=== PATIENT | female | born 1965 | race Caucasian/White ===

== ENCOUNTER 2020-12-30 15:32 | Emergency (ER) | payer BC, SELFPAY ==
[2020-12-30 15:53] VITALS: BP 132/92; PULSE 80; RESP 16; TEMP 36.1; O2SAT 99
--- NOTE | 2020-12-30 16:28 | ED.FEMALEGU ---
HPI - Female Genitourinary General Chief complaint: Urogenital-Female Stated complaint: Urogenital-Female Time Seen by Provider: 12/30/20 16:14 Source: patient and RN notes reviewed Mode of arrival: ambulatory Limitations: no limitations History of Present Illness HPI Narrative: Patient presents today complaining of 2-day history of lower abdominal cramping with dysuria and hematuria that started today. States that she noted blood clots in her urine while at home today. Denies fever, nausea, vomiting, chills or sweats. She has taken no medication for symptoms prior to arrival. No recent antibiotic use. No history of frequent UTIs. MD elicited complaint: dysuria Related Data Home Medications Medication Instructions Recorded Confirmed atenolol 50 mg PO DAILY 12/30/20 12/30/20 cyclobenzaprine [Flexeril] 10 mg PO HS 12/30/20 12/30/20 dexlansoprazole [Dexilant] 30 mg PO DAILY 12/30/20 12/30/20 duloxetine [Cymbalta] 60 mg PO DAILY 12/30/20 12/30/20 famotidine [Pepcid] 20 mg PO BID 12/30/20 12/30/20 fexofenadine [Gaye] 180 mg PO DAILY 12/30/20 12/30/20 montelukast [Singulair] 10 mg PO DAILY 12/30/20 12/30/20 pregabalin [Lyrica] 150 mg PO BID 12/30/20 12/30/20 Allergies Allergy/AdvReac Type Severity Reaction Status Date / Time codeine AdvReac Unknown nausea Verified 12/15/17 18:39 tramadol AdvReac Unknown severely Verified 12/15/17 18:39 interupted sleep Review of Systems Review of Systems: Narrative: CONSTITUTIONAL: Denies body aches, fever, chills, or sweats. EYES: Denies visual changes, redness, or discharge. ENT: Denies rhinorrhea, congestion, sore throat, or otalgia. CARDIOVASCULAR: Denies chest pain, palpitations, or edema. RESPIRATORY: Denies cough or dyspnea. GASTROINTESTINAL: Denies nausea, vomiting, or diarrhea. + Lower abdominal cramping GENITOURINARY:+ Dysuria, hematuria, urgency. SKIN: Denies rash, itching, or wounds. MUSCULOSKELETAL: Denies back pain, joint pain, or myalgia. NEUROLOGIC: Denies headache, numbness, tingling, or weakness. PSYCH: Denies depression or anxiety. [facility] Past Medical History Medical History (Updated 12/30/20 @ 16:35 by Giovana Levine, SLIP TENDER, ) Connective tissue disease Fibromyalgia Tricuspid regurgitation Comments At time of signature, I have reviewed and agree with nursing past medical, surgical, social and family history unless otherwise noted. Please see nursing chart for further information. There is no relevant family history pertinent to the presenting complaint Exam Narrative: Exam Narrative: GENERAL: Well-appearing, well-nourished, and in no acute distress. HEAD: Normocephalic, atraumatic. EYES: EOMI. No redness or drainage. Conjunctivae normal. ENT: Mucous membranes pink and moist. NECK: Normal AROM. CHEST: No respiratory distress. Clear to auscultation. HEART: Regular rate and rhythm. No murmur appreciated. Normal peripheral pulses. ABDOMEN: Soft, nontender, nondistended, normal active bowel sounds. -CVAT MUSCULOSKELETAL: No bony tenderness. EXTREMITIES: Normal range of motion. No edema. SKIN: Warm, dry, no rash. Capillary refill normal. Normal skin turgor. NEURO: No focal deficits. Alert and oriented x3. Gait steady. PSYCH: Normal affect. No signs of depression or anxiety. Course Vital Signs Vital signs: Vital Signs Temperature 97 F L 12/30/20 15:53 Pulse Rate 80 12/30/20 15:53 Respiratory Rate 16 12/30/20 15:53 Blood Pressure 132/92 H 12/30/20 15:53 Pulse Oximetry 99 12/30/20 15:53 Temperature 97 F L 12/30/20 15:53 Pulse Rate 80 12/30/20 15:53 Respiratory Rate 16 12/30/20 15:53 Blood Pressure 132/92 H 12/30/20 15:53 Pulse Oximetry 99 12/30/20 15:53 Reviewed. Pt has been instructed to follow up with her PCP regarding her elevated blood pressure today. MDM - Female Genitourinary Differential Diagnosis Differential diagnosis: Likely urinary tract infection, cervicitis, vaginitis and other (Pyel
== END 2020-12-30 16:44 | disposition home or self-care (01) ==
PROVIDERS: Emergency Provider Nurse Practitioner; PCP Physician Assistant
DX: N30.01 Acute cystitis with hematuria (principal); M79.7 Fibromyalgia; I07.1 Rheumatic tricuspid insufficiency
CPT/HCPCS: 81003; 87086; 87088; 99203; G0463

== ENCOUNTER 2023-07-06 10:11 | Emergency (ER) | payer BC, SELFPAY ==
[2023-07-06 10:24] VITALS: BP 120/75; PULSE 81; RESP 18; TEMP 36.2; O2SAT 99
--- NOTE | 2023-07-06 10:28 | ED.EYEPROB ---
HPI - Eye Problem General Chief complaint: Eye Problems Stated complaint: Right Eye Problem History of Present Illness HPI Narrative: Patient presents with right eye redness and itching. Patient states she had COVID 2 weeks ago and is now worried that she has pinkeye. Related Data Home Medications Medication Instructions Recorded Confirmed atenolol 50 mg tablet 50 mg PO DAILY 12/30/20 07/06/23 cyclobenzaprine 10 mg tablet 10 mg PO HS 12/30/20 07/06/23 dexlansoprazole 30 mg 30 mg PO DAILY 12/30/20 07/06/23 capsule,biphase delayed release (Dexilant) duloxetine 60 mg capsule,delayed 60 mg PO DAILY 12/30/20 07/06/23 release (Cymbalta) famotidine 20 mg tablet (Pepcid) 20 mg PO BID 12/30/20 07/06/23 fexofenadine 180 mg tablet 180 mg PO DAILY 12/30/20 07/06/23 montelukast 10 mg tablet 10 mg PO DAILY 12/30/20 07/06/23 (Singulair) pregabalin 150 mg capsule (Lyrica) 150 mg PO BID 12/30/20 07/06/23 eluxadoline 100 mg tablet (Viberzi) 1 mg PO BID 07/06/23 07/06/23 Allergies Allergy/AdvReac Type Severity Reaction Status Date / Time codeine AdvReac Unknown nausea Verified 07/06/23 10:23 tramadol AdvReac Unknown severely Verified 07/06/23 10:23 interupted sleep Review of Systems Review of Systems: CONSTITUTIONAL: Denies fever, chills, or sweats. EYES: Denies visual changes, redness, or discharge. ENT: Denies rhinorrhea, congestion, sore throat, or otalgia. CARDIOVASCULAR: Denies chest pain, palpitations, or edema. RESPIRATORY: Denies cough or dyspnea. GASTROINTESTINAL: Denies abdominal pain, nausea, vomiting, or diarrhea. GENITOURINARY: Denies dysuria or hematuria. SKIN: Denies rash or itching. MUSCULOSKELETAL: Denies back pain, joint pain, or myalgia. NEUROLOGIC: Denies headache, numbness, or weakness. PSYCHIATRIC: Denies anxiety or depression. [facility] Past Medical History Medical History (Updated 07/06/23 @ 10:30 by BRYANT Vela) Connective tissue disease Fibromyalgia Tricuspid regurgitation Comments At time of signature, agree with nursing past medical, surgical, social and family history. There is no relevant family history pertinent to the presenting complaint Exam Narrative: GENERAL: Well-appearing, well-nourished, and in no acute distress. HEAD: Normocephalic, atraumatic. EYES: PERRLA and EOMI. ENT: Nares clear, no rhinorrhea or epistaxis. Mucous membranes moist. NECK: Supple. CHEST: Clear to auscultation. No respiratory distress. HEART: Regular rate and rhythm. No murmur heard. Normal peripheral pulses. ABDOMEN: Soft, nontender, nondistended, normal active bowel sounds. EXTREMITIES: Normal range of motion. No edema. SKIN: Warm, dry, no rash. NEURO: No focal deficits. Alert and oriented x3. Azeem Coma Scale Eye Opening: Spontaneous 4 [place] Coma Scale Motor: Obeys Commands 6 Azeem Coma Scale Verbal: Oriented 5 [place] Coma Scale Total 15 Eyes: Conjunctivae: conjunctival abnormality (conjuntivitis) right Course Course Level of Care: Express Care Visit Vital Signs Vital signs: Vital Signs Temperature 36.2 C L 07/06/23 10:24 Pulse Rate 81 07/06/23 10:24 Respiratory Rate 18 07/06/23 10:24 Blood Pressure 120/75 07/06/23 10:24 Pulse Oximetry 99 07/06/23 10:24 Oxygen Delivery Room Air 07/06/23 10:24 Temperature 36.2 C L 07/06/23 10:24 Pulse Rate 81 07/06/23 10:24 Respiratory Rate 18 07/06/23 10:24 Blood Pressure 120/75 07/06/23 10:24 Pulse Oximetry 99 07/06/23 10:24 Oxygen Delivery Room Air 07/06/23 10:24 Discharge Plan Discharge Clinical Impression: Bacterial conjunctivitis Patient Disposition: Home, Self-Care Condition: Stable Instructions: Conjunctivitis (ED) Additional Instructions: Conjunctivitis is spread by lyka-or-qyxa contact or by touching a contaminated surface. You can use artificial tears, cold and warm compresses-use, different compress for each eye, and increase hygiene such as h
[2023-07-06 10:31] VITALS: BP 120/75; PULSE 81; RESP 18; TEMP 36.2; O2SAT 99
== END 2023-07-06 10:35 | disposition home or self-care (01) ==
PROVIDERS: Emergency Provider Nurse Practitioner Family; PCP Physician Assistant
DX: H10.9 Unspecified conjunctivitis (principal)
CPT/HCPCS: 99213; G0463

== ENCOUNTER 2024-12-25 13:30 | Emergency (ER) | payer BC, SELFPAY ==
--- OUTSIDE RECORDS SUMMARY | 2024-12-25 13:41 | XMS_ITS | Encounter Summary ---
Author Organization [facility] Address [address] [place] [address] Phone Care Team Providers Care Metal Hanger Name Role Phone Cheo David DO Unavailable [phone] Susanna Hickman AIR TWISTER WINDER, REVENUE SETTLEMENTS ADMINISTRATOR Unavailable Angela Stafford AIR TWISTER WINDER, REVENUE SETTLEMENTS ADMINISTRATOR Unavailable Gracy Griffith MD Unavailable Chary Ferris PAC Primary Care Provider + Cameron Camacho MD Unavailable Sharon Tai MD Unavailable [phone] Gail Morales APRN, REVENUE SETTLEMENTS ADMINISTRATOR Unavailable Reason for Visit * Reason Comments Medication Refill Encounter Details Date Type Department Care Team (Late st Contact Info) Description 06/11/2021 Refill [facility] - [facility] - [place] [address] [place] [address] Suzie Hearn PAC [address] [place] [address] Medication Refill Social History Tobacco Use Types Packs/Day Years Used Date Smoking Tobacco: Never Smokeless Tobacco: Never Alcohol Use Standard Drinks/Week Comments Yes 0 (1 standard drink = 0.6 oz pur e alcohol) seldom maybe one drink a month PHQ-2 Answer Date Recorded Total Score - Questions 1-9 0 02/01 Education Answer Date Recorded What is the highest level of school you have completed or the highest degree you have received? 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 Dexilant 60 MG CAPSULE DELAYED RELEASE [Pharmacy Med Name: DEXILANT DR 60 MG CAPSULE] 90 Capsule 3 Sig: TAKE 1 CAPSULE BY MOUTH EVERY DAY Last fill: 03/13/2021 Patients last OV with GI: 05/04/2020 Next Office Visit with GI: LMOM for patient to call office so she can be scheduled for annual medication check appointment. documented in this encounter Plan of Treatment Upcoming Encounters Date Type Department Care Team (Late st Contact Info) Description 03/16/2025 11:30 AM CDT Office Visit [facility] - Endocrinology - [place] [address] [place] [address] Cameron Camacho MD [address] [address] 04/05/2025 2:00 PM CDT Office Visit [facility] - Gastroenterology - [place] [address] [place] [phone] Gail Morales APRN, REVENUE SETTLEMENTS ADMINISTRATOR [address] [place] [address] 05/26/2025 11:15 AM CDT Office Visit [facility] [place] [address] [place] [address] Chary Ferris PAC [address] [place] [address] documented as of this encounter Visit Diagnoses Not on filedocumented in this encounter Additional Health Concerns Infection Onset Date Last Indicated Resolved Time COVID - 19 11/08/2021 11/09/2021 11/28/2021 12:1 6 AM FOURTH HAND Assessment Noted Time PHQ-9 Depression Total Score: 0 02/16/20 21 2:00 PM CDT documented as of this encounter Care Teams Metal Hanger Relationship Specialty Start Date End Date Chary Ferris PAC [address] [place] [address] PCP - General Physician Reservations Clerk 11/17/17 Cheo David DO Gastroenterology 05/09/16 Susanna Hickman APRN, REVENUE SETTLEMENTS ADMINISTRATOR Nurse Practitioner Advanced Practice Nurse 05/09/16 Angela Stafford APRN, REVENUE SETTLEMENTS ADMINISTRATOR Nurse Practitioner Advanced Practice Nurse 05/09/16 Gracy Griffith MD [address] [place] [address] Family Medicine 04/03/17 Cameron Camacho MD #[address] [address] Consulting Physician Endocrinology 12/15/23 Sharon Tai MD [address] [place] [address] Consulting Physician Gastroenterology 12/05/22 Gail Morales APRN, REVENUE SETTLEMENTS ADMINISTRATOR [address] [place] [address] Nurse Practitioner Advanced Practice Nurse 10/06/24 documented as of this encounter
--- OUTSIDE RECORDS SUMMARY | 2024-12-25 13:41 | XMS_ITS | Encounter Summary ---
Author Organization [facility] Address [address] [place] [address] Phone Care Team Providers Care Hydraulic Lift Driver Name Role Phone Cheo David DO Unavailable [phone] Susanna Hickman PHOTO OPTICS TECHNICIAN, BARBER Unavailable Angela Stafford PHOTO OPTICS TECHNICIAN, BARBER Unavailable Gracy Griffith MD Unavailable Chary Ferris PAC Primary Care Provider + Cameron Camacho MD Unavailable Sharon Tai MD Unavailable [phone] Gail Morales APRN, BARBER Unavailable Reason for Visit * Reason Comments Medication Refill Encounter Details Date Type Department Care Team (Late st Contact Info) Description 10/14/2021 Refill [facility] - [place] [address] [place] [address] Suzie Hearn PAC [address] [place] [address] Medication Refill Social History Tobacco Use Types [...] Master's degree (e.g., MA, MS, Shay, MEd, DIRECTOR OF GRADUATE ADMISSIONS, SYED) 11/29/2020 Sexually Active Control Partners Comments Yes Comments No Sex and Gender Information Value Date Recorded Sex Assigned at Not on file Legal Sex Female 10:48 PM CDT Gender Identity Not on file Sexual Orientation Not on file 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 No / Unsure 10/17/2021 4:00 PM SPEECH LANG PATH documented as of this encounter Miscellaneous Notes * Telephone Encounter - Emely Crockett RN - 10/15/2021 10:49 AM SPEECH LANG PATH Medication [facility] and [facility] [place] for pediatric and adult patients. CH LANG PATH documented in this encounter Plan of Treatment Upcoming Encounters Date Type Department Care Team (Late st Contact Info) Description 03/16/2025 11:30 AM CDT Office Visit [facility] - Endocrinology - [place] [address] [place] [phone] Cameron Camacho MD #[address] [address] 04/05/2025 2:00 PM CDT Office Visit [facility] - Gastroenterology - [place] [address] [place] [address] Gail Moarles APRN, BARBER [address] [place] [address] 05/26/2025 11:15 AM CDT Office Visit [facility] - [facility] [place] [address] [place] [address] Chary Ferris PAC [address] [place] [address] documented as of this encounter Visit Diagnoses Not on filedocumented in this encounter Additional Health Concerns Infection Onset Date Last Indicated Resolved Time COVID - 19 11/08/2021 11/09/2021 11/28/2021 12:1 6 AM SPEECH LANG PATH Assessment Noted Time PHQ-9 Depression Total Score: 0 02/16/20 21 2:00 PM CDT documented as of this encounter Care Teams Hydraulic Lift Driver Relationship Specialty Start Date End Date Chary Ferris PAC [address] [place] [address] PCP - General Physician Breading Machine Tender 11/17/17 Cheo David DO Gastroenterology 05/09/16 Susanna Hickman, PHOTO OPTICS TECHNICIAN, BARBER Nurse Practitioner Advanced Practice Nurse 05/09/16 Angela Stafford, PHOTO OPTICS TECHNICIAN, BARBER Nurse Practitioner Advanced Practice Nurse 05/09/16 Gracy Griffith MD [address] [place] [address] Family Medicine 04/03/17 Cameron Camacho MD #[address] [address] Consulting Physician Endocrinology 12/15/23 Sharon Tai MD [address]2 [place] [address] Consulting Physician Gastroenterology 12/05/22 Gail Morales APRN, BARBER [address] [place] [address] Nurse Practitioner Advanced Practice Nurse 10/06/24 documented as of this encounter
--- OUTSIDE RECORDS SUMMARY | 2024-12-25 13:41 | XMS_ITS | Encounter Summary ---
Author Organization [facility] Address [address] [place] [address] Phone Care Team Providers Care Regional Planner Name Role Phone Cheo David DO Unavailable [phone] Susanna Hickman BOTTOM MAN, DETAIL SUPERVISOR Unavailable [phone] Angela Stafford BOTTOM MAN, DETAIL SUPERVISOR Unavailable Gracy Griffith MD Unavailable Chary Ferris [facility] Primary Care Provider + Cameron Camacho MD Unavailable Sharon Tai MD Unavailable [phone] Gail Morales APRN, DETAIL SUPERVISOR Unavailable Reason for Visit * Reason Comments Medication Refill Encounter Details Date Type Department Care Team (Late st Contact Info) Description 03/13/2024 Refill [facility] - [place] [address] [place] [address] Gail Morales APRN, DETAIL SUPERVISOR [address] [place] [address] Medication Refill Social History Tobacco Use Types Packs/Day Years Used Date Smoking Tobacco: Never Smokeless Tobacco: Never Alcohol Use Standard Drinks/Week Comments Yes 0 (1 standard drink = 0.6 oz pur e alcohol) seldom maybe one drink a month PHQ-2 Answer Date Recorded Total Score - Questions 1-9 0 07/05 Education Answer Date Recorded What is the highest level of school you have completed or the highest degree you have received? 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 Per nursing clinical judgement, provider to review and approve the medication(s) order(s) if appropriate. Allergy/Contraindication 1. ESOMEPRAZOLE [Level: Drug Class Match] [Reason: Low risk] Comment: Overridden by Gail Morales APRN, DETAIL SUPERVISOR on March 10, 2023 9:30 AM Allergy/Contraindication 1. ESOMEPRAZOLE [Level: Drug Class Match] [Reason: Low risk] 2. OMEPRAZOLE [Level: Drug Class Match] [Reason: Low risk] 3. PANTOPRAZOLE SODIUM [Level: Drug Class Match] [Reason: Low risk 2. OMEPRAZOLE [Level: Drug Class Match] [Reason: Low risk] Requested Prescriptions Pending Prescriptions Disp Refills Dexilant 60 MG CAPSULE DELAYED RELEASE [Pharmacy Med Name: DEXILANT DR 60 MG CAPSULE] 90 Capsule 1 Sig: TAKE 1 CAPSULE BY MOUTH EVERY DAY Proton Pump Inhibitors Protocol Passed - 03/13/2024 7:52 AM Passed - Visit with relevant provider in past 12 months or upcoming 90 days Recent Visits Date Type Provider Dept 10/02/23 Office Visit Sharon [facility] [place] 07/28/23 [facility] Visit Chary Ferris PAC [facility] Showing recent visits within past 365 days and meeting all other requirements Future Appointments Date Type Provider Dept 05/07/24 Appointment [facility] Ferr[facility] Show[facility] future appointments within next 90 days and meeting all other requirements documented in this encounter Plan of Treatment Upcoming Encounters Date Type Department Care Team (Late st Contact Info) Description 03/16/2025 11:30 AM CDT Office Visit [facility] Medical [facility] - Endocrinology - [place] [address] [place] [address] Cameron Camacho MD #[address] [address] 04/05/2025 2:00 PM CDT Office Visit [facility] Medical [facility] - Gastroenterology - [place] #2 [facility] [place] [address] Gail Morales APRN, DETAIL SUPERVISOR [address] [place] [address] 05/26/2025 11:15 AM CDT Office Visit [facility] - Family Medicine - [place] [address] [place] [address] Chary Ferris PAC [address] [place] [address] documented as of this encounter Visit Diagnoses Diagnosis Gastroesophageal reflux disease with esophagitis without hemorrhage Irritable bowel syndrome with diarrhea Irritable bowel syndrome documented in this encounter Additional Health Concerns Assessment Noted Time PHQ-9 Depression Total Score: 0 07/28/20 9:43 AM CDT documented as of this encounter Care Teams Regional Planner Relationship Specialty Start Date End Date Chary Ferris PAC [address] [place] [address] PCP - General Physician Anthropometrist 11/17/17 Cheo David DO Gastroenterology 05/09/16 Susanna Hickman APRN, DETAIL SUPERVISOR Nurse Practitioner Advanced Practice Nurse 05/09/16 Angela Stafford APRN, DETAIL SUPERVISOR Nurse Practitioner Advanced Practice Nurse 05/09/16 Gracy Griffith MD [address] [place] [address] Family Medicine 04/03/17 Cameron Camacho MD #[address] [address] Consulting Physician Endocrinology 12/15/23 Sharon Tai MD #2 [place] [address] Consulting Physician Gastroenterology 12/05/22 Gail Morales APRN, DETAIL SUPERVISOR [address] [place] [address] Nurse Practitioner Advanced Practice Nurse 10/06/24 documented as of this encounter
--- OUTSIDE RECORDS SUMMARY | 2024-12-25 13:42 | XMS_ITS | Referral Summary ---
Author Organization [facility] [employer] Address [address] [place] [place] [address] Care Team Providers Care Haulpak Driver Name Role Phone Unavailable Primary Care Provider Unavailabl e Source Comments [facility],non-owned Affiliates and Associated Physician Practices is amultiple site organization consisting of ambulatory clinics and hospital sitesin [place], [place], [place] and [place]. This disclosure is being madepursuant to the Care Everywhere program and may not contain all information available regarding this patient. Last updated 18.[facility] [employer] Allergies Active Allergy Reactions Criticality Noted Date Comments Adhesive Sensitivity 11/25/2012 Tramadol 11/25/2012 NIGHTMARES-STARTLED AND BIT HER TONGUE Acetaminophen Itching High 12/24/2012 Hydrocodone-Acetaminophen 12/15/2012 KEPT ME AWAKE Medications * Be aware that medications may not be up to date on this document. Alwaysverify current medications with the patient. Medication Sig Dispensed Refills Start Date End Date Status fluticasone hfa 110 (FLOVENT HFA 110) 110 MCG/ACT inhaler Inhale 2 Puffs by mouth once daily after breakfast. Active fexofenadine (ALEXYS) 180 MG tablet Take 180 mg by mouth once daily after breakfast. Active DULoxetine (CYMBALTA) 60 MG capsule Take 60 mg by mouth once daily after breakfast. Active atenolol (TENORMIN) 25 MG tablet Take 25 mg by mouth at bedtime. Active levonorgestrel-ethinyl estradiol (JOLESSA) tablet Take 1 Tab by mouth once daily. Active Multiple Vitamin (MULTI-VITAMIN PO) Take by mouth. Ac tive cyclobenzaprine (FLEXERIL) 10 MG tablet Take 1 Tab by mouth every 8 hours as needed for Muscle Spasms. 90 Tab 1 02/08/2013 Active pregabalin (LYRICA) 75 MG capsule Take 75 mg by mouth 2 times daily. Active Active Problems No known active problems Social History Tobacco Use Types Packs/Day Years Used Date Smoking Tobacco: Never Smokeless Tobacco: Never Alcohol Use Standard Drinks/Week Comments Yes 0 (1 standard drink = 0.6 oz pur e alcohol) SOCIALLY /RARE Sex and Gender Information Value Date Recorded Sex Assigned at Not on file Gender Identity Not on file Sexual Orientation Not on file Last Filed Vital Signs Vital Sign Reading Time Taken Comments Blood Pressure 103/53 12/25/2012 7:58 AM SERVICE AIDE Pulse 66 12/25/2012 7:58 AM SERVICE AIDE Temperature 36.7 C (98 F) 12/25/2012 7:58 AM SERVICE AIDE Respiratory Rate 16 12/25/2012 7:58 AM SERVICE AIDE Oxygen Saturation 96% 12/25/2012 7:58 AM SERVICE AIDE Inhaled Oxygen Concentration - - Weight 100.3 kg (221 lb 1.9 oz) 12/24/2012 8:46 AM SERVICE AIDE Height 170.2 cm (5' 7 ) 12/24/2012 8:46 AM SERVICE AIDE Body Mass Index 34.63 12/24/2012 8:46 AM SERVICE AIDE Plan of Treatment Not on file Advance Directives * FULL RESUSCITATION (Latest Code Status on File) Date Activated Date Inactivated Comments 12/24/2012 3:05 PM 12/25/2012 12:10 PM
--- OUTSIDE RECORDS SUMMARY | 2024-12-25 13:42 | XMS_ITS | Encounter Summary ---
Author Organization [facility] Address [address] [place] [address] Phone Care Team Providers Care Power Saw Operator Name Role Phone Cheo David DO Unavailable [phone] Susanna Hickman KNOCK OUT HAND, TECHNICAL EXPERT Unavailable Angela Stafford KNOCK OUT HAND, TECHNICAL EXPERT Unavailable Gracy Griffith MD Unavailable Chary Ferris PAC Primary Care Provider + Cameron Camacho MD Unavailable Sharon Tai MD Unavailable [phone] Gail Morales APRN, TECHNICAL EXPERT Unavailable Reason for Visit * Reason Comments Medication Refill Encounter Details Date Type Department Care Team (Late st Contact Info) Description 08/05/2024 Refill [facility] - Family Medicine - [place] [address] [place] [id number] Chary Ferris PAC [address] [place] [address] Medication Refill Social History Tobacco Use Types Packs/Day Years Used Date Smoking Tobacco: Never Smokeless Tobacco: Never Alcohol Use Standard Drinks/Week Comments Yes 0 (1 standard drink = 0.6 oz pur e alcohol) seldom maybe one drink a month [facility] Utilities Answer Date Recorded In the past 12 months has e electric, gas, oil, or water company threatened to shut off services in your home? No 06/10/2024 Social Connection and Isolat ion Panel [NHANES] Answer Date Recorded In a typical week, how many times do you talk on the phone with family, friends, or neighbors? More than three times a week 06/10/2024 How often do you get togethe r with friends or relatives? Three times a week 06/10/2024 How often do you attend chur ch or islam services? Never 06/10/2024 Do you belong to any clubs o r organizations such as jainism groups, unions, fraternal or athletic groups, or school groups? Yes 06/10/2024 How often do you attend meet ings of the clubs or organizations you belong to? More than 4 times per year 06/10/2024 Are you , , di vorced, , never , or living with a partner? 06/10/2024 AUDIT-C Answer Date Recorded Q1: How often do you have a drink containing alc ohol? Monthly or less 06/10/2024 Q2: How many drinks containi ng alcohol do you have on a typical day when you are drinking? 1 or 2 06/10/2024 Q3: How often do you have si x or more drinks on one occasion? Never 06/10/2024 Overall Financial Resource Strain (CARDIA) Answe r Date Recorded How hard is it for you to pa y for the very basics like food, housing, medical care, and heating? Not hard at all 06/10/2024 PHQ-2 Answer Date Recorded Total Score - Questions 1-9 0 07/05 [facility] [place] [facility] Occup[facility] ional Health - Occupational Stress Questionnaire Answer Date Recorded Do you feel stress - tense, restless, nervous, or anxious, or unable to sleep at night because your mind is troubled all the time - these days? Only a little 06/10/2024 Exercise Vital Sign Answer Date Recorde d On average, how many days pe r week do you engage in moderate to strenuous exercise (like a brisk walk)? 2 days 06/10/2024 On average, how many minutes do you engage in exercise at this level? 30 min 06/10/2024 Hunger Vital Sign Answer Date Recorded Within the past 12 months, y ou worried that your food would run out before you got the money to buy more. Never true 06/10/20 24 Within the past 12 months, t he food you bought just didn't last and you didn't have money to get more. Never true 06/10/2024 PRAPARE - Transportation Answer Date Re corded In the past 12 months, has l ack of transportation kept you from medical appointments or from getting medications? No 06/2024 In the past 12 months, has l ack of transportation kept you from meetings, work, or from getting things needed for daily living? No 06/10/2024 Housing Stability Vital Sign Answer Jason e Recorded In the last 12 months, was t here a time when you were not able to pay the mortgage or rent on time? No 06/10/2024 In the past 12 months, how m any times have you moved where you were living? 0 06/10/2024 At any time in the past 12 m onths, were you homeless or living in a snf (including now)? No 06/10/2024 Education Answer Date Recorded What is the highest level of school you have completed or the highest degree you have received? 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 * Telephone Encounter - Callie Tan RN - 08/05/2024 2:11 PM CDT duplicate documented in this encounter Plan of Treatment Upcoming Encounters Date Type Department Care Team (Late st Contact Info) Description 03/16/2025 11:30 AM CDT Office Visit [facility] - Endocrinology - [place] [address] [place] [address] Cameron Camacho MD [address] [address] 04/05/2025 2:00 PM CDT Office Visit [facility] - Gastroenterology - [place] [address] [place] [address] Gail Morales APRN, TECHNICAL EXPERT [address] [place] [address] 05/26/2025 11:15 AM CDT Office Visit [facility] - Family Medicine - [place] [address] [place] [address] Chary Ferris, PAC [address] [place] [address] documented as of this encounter Visit Diagnoses Diagnosis Fibromyalgia Mylagia and myositis, unspecified documented in this encounter Additional Health Concerns Assessment Noted Time PHQ-9 Depression Total Score: 0 07/28/20 23 9:43 AM CDT documented as of this encounter Care Teams Power Saw Operator Relationship Specialty Start Date End Date Chary Ferris PAC [address] [place] [address] PCP - General Physician Case Finishing Machine Adjuster 11/17/17 Cheo David DO Gastroenterology 05/09/16 Susanna Hickman, KNOCK OUT HAND, TECHNICAL EXPERT Nurse Practitioner Advanced Practice Nurse 05/09/16 Angela Stafford, PRISCA, TECHNICAL EXPERT Nurse Practitioner Advanced Practice Nurse 05/09/16 Gracy Griffith MD [address] [place] [address] Family Medicine 04/03/17 Cameron Camacho MD #[address] [address] Consulting Physician Endocrinology 12/15/23 Sharon Tai MD [address] [place] [address] Consulting Physician Gastroenterology 12/05/22 Gail Morales APRN, TECHNICAL EXPERT [address] [place] [address] Nurse Practitioner Advanced Practice Nurse 10/06/24 documented as of this encounter
--- OUTSIDE RECORDS SUMMARY | 2024-12-25 13:42 | XMS_ITS | Encounter Summary ---
Author Organization [facility] Address [address] [place] [address] Phone Care Team Providers Care Equal Opportunity Representative Name Role Phone Cheo David DO Unavailable [phone] Susanna Hickman LINGO CLEANER, PROTECTION AGENT Unavailable [phone] Angela Stafford LINGO CLEANER, PROTECTION AGENT Unavailable Gracy Griffith MD Unavailable [phone] Chary Ferris PAC Primary Care Provider + Cameron Camacho MD Unavailable Sharon Tai MD Unavailable [phone] Gail Morales APRN, PROTECTION AGENT Unavailable Reason for Visit * Reason Comments Medication Refill Encounter Details Date Type Department Care Team (Late st Contact Info) Description 07/05/2023 Refill [facility] - Family Medicine - [place] [address] [place] [phone] Chary Ferris PAC [address] [place] [address] Medication Refill Social History Tobacco Use Types Packs/Day Years Used Date Smoking Tobacco: Never Smokeless Tobacco: Never Alcohol Use Standard Drinks/Week Comments Yes 0 (1 standard drink = 0.6 oz pur e alcohol) seldom maybe one drink a month PHQ-2 Answer Date Recorded Total Score - Questions 1-9 0 01/2023 Education Answer Date Recorded What is the highest level of school you have completed or the highest degree you have received? Master's degree (e.g., MA, MS, Shay, MEd, ACID LEVELER, SYED) 11/29/2020 Sexually Active Control Partners Comments Yes Comments No Sex and Gender Information Value Date Recorded Sex Assigned at Not on file Legal Sex Female 10:48 PM CDT Gender Identity Not on file Sexual Orientation Not on file Occupation Industry Job Start Date Job End Date [employer] Not on file Not on file Not on file documented as of this encounter Miscellaneous Notes * Telephone Encounter - Chantel Downey RN - 07/05/2023 10:00 AM CDT Medication failed the protocol, provider to review and approve the medication order if appropriate. Requested Prescriptions Pending Prescriptions Disp Refills DULoxetine (CYMBALTA) [address] Particles [Pharmacy Med Name: DULOXETINE HCL DR 60 MG CAP] 90 Capsule 1 Sig: TAKE 1 CAPSULE BY MOUTH EVERY DAY SNRI (6 Month Refill Only) Protocol Failed - 07/05/2023 12:07 AM Failed - Has an encounter in the past 6 months with a depression or anxiety visit diagnosis Passed - No test in the past 12 months or most recent test was negative Passed - No active on record Passed - Visit with relevant provider in past 6 months or upcoming 90 days Recent Visits Date Type Provider Dept 05/05/23 Office Visit Chary Ferris PAC [facility] [place] Showing recent visits within past 182 days and meeting all other requirements Future Appointments No visits were found meeting these conditions. Showing future appointments within next 90 days and meeting all other requirements Passed - Patient has established therapy with Serotonin-Norepinephrine Reuptake Inhibitors for at least 6 months documented in this encounter Plan of Treatment Upcoming Encounters Date Type Department Care Team (Late st Contact Info) Description 03/16/2025 11:30 AM CDT Office Visit [facility] - Endocrinology - [place] [address] [place] [address] Cameron Camacho MD [address] [address] 04/05/2025 2:00 PM CDT Office Visit [facility] - Gastroenterology - [place] [address] [place] [address] Gail Morales APRN, PROTECTION AGENT [address] [place] [address] 05/26/2025 11:15 AM CDT Office Visit [facility] Family Medicine [facility] [address] [place] [address] Chary Ferris, SHAYLA [address] [place] [address] documented as of this encounter Visit Diagnoses Not on filedocumented in this encounter Additional Health Concerns Assessment Noted Time PHQ-9 Depression Total Score: 0 05/05/20 23 10:00 AM CDT documented as of this encounter Care Teams Equal Opportunity Representative Relationship Specialty Start Date End Date Chary Ferris PAC [address] [place] [address] PCP - General Physician Cytogenetic Technologist 11/17/17 Cheo David DO Gastroenterology 05/09/16 Susanna Hickman APRN, PROTECTION AGENT Nurse Practitioner Advanced Practice Nurse 05/09/16 Angela Stafford, LINGO CLEANER, PROTECTION AGENT Nurse Practitioner Advanced Practice Nurse 05/09/16 Gracy Griffith MD [address] [place] [address] Family Medicine 04/03/17 Cameron Camacho MD #[address] [address] Consulting Physician Endocrinology 12/15/23 Sharon Tai MD [address] [place] [address] Consulting Physician Gastroenterology 12/05/22 Gail Morales APRN, [address] [place] [address] Nurse Practitioner Advanced Practice Nurse 10/06/24 documented as of this encounter
--- OUTSIDE RECORDS SUMMARY | 2024-12-25 13:42 | XMS_ITS | Encounter Summary ---
Author Organization [facility] Address [address] [place] [address] Phone Care Team Providers Care Radiation Control Specialist Name Role Phone Cheo David DO Unavailable [phone] Susanna Hickman CHIEF OPERATOR HYDROFORMER, SUPERVISOR GROVE Unavailable Angela Stafford CHIEF OPERATOR HYDROFORMER, SUPERVISOR GROVE Unavailable Gracy Griffith MD Unavailable Chary Ferris Primary Care Provider + Cameron Camacho MD Unavailable Sharon Tai MD Unavailable [phone] Gail Morales APRN, SUPERVISOR GROVE Unavailable Reason for Visit * Reason Comments Medication Refill Encounter Details Date Type Department Care Team (Late st Contact Info) Description 03/07/2024 Refill [facility] - Family Medicine - [place] [address] [place] [phone] Chary Ferris PAC [address] [place] [address] Medication Refill Social History Tobacco Use Types [...] Master's degree (e.g., MA, MS, Shay, MEd, PASSPORT SUPPORT ASSOCIATE, SYED) 11/29/2020 Sexually Active Control Partners Comments Yes Comments No Sex and Gender Information Value Date Recorded Sex Assigned at Not on file Legal Sex Female 10:48 PM CDT Gender Identity Not on file Sexual Orientation Not on file 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 Requested Prescriptions Pending Prescriptions Disp Refills atenolol (TENORMIN) 100 MG Tablet [Pharmacy Med Name: ATENOLOL 100 MG TABLET] 45 Tablet 1 Sig: TAKE 1/2 TABLET BY MOUTH DAILY Atenolol Protocol Passed - 03/07/2024 12:57 AM Passed - BP on record in the past year Clinician-entered: BP Readings from Last 3 Encounters: 01/29/24 135/76 01/29/24 110/60 12/22/23 122/74 Patient-entered: No data recorded Passed - Visit with relevant provider in past 12 months or upcoming 90 days Recent Visits Date Type Provider Dept 07/28/23 Office Visit Chary Ferris PAC [facility] 05/05/23 Office Visit Chary Ferris PAC [facility] Showing recent visits within past 365 days and meeting all other requirements Future Appointments Date Type Provider Dept 05/07/24 Appointment Chary Ferris PAC [facility] Showing future appointments within next 90 days and meeting all other requirements documented in this encounter Plan of Treatment Upcoming Encounters Date Type Department Care Team (Late st Contact Info) Description 03/16/2025 11:30 AM CDT Office Visit [facility] - Endocrinology - [place] [address] [place] [address] Cameron Camacho MD [address] [address] 04/05/2025 2:00 PM CDT Office Visit [facility] - Gastroenterology - [place] [address] [place] [address] Gail Morales APRN, SUPERVISOR GROVE [address] [place] [address] 05/26/2025 11:15 AM CDT Office Visit [facility] Family Medicine [facility] [address] [place] [address] Chary Ferris PAC [address] [place] [address] documented as of this encounter Visit Diagnoses Not on filedocumented in this encounter Additional Health Concerns Assessment Noted Time PHQ-9 Depression Total Score: 0 07/28/20 23 9:43 AM CDT documented as of this encounter Care Teams Radiation Control Specialist Relationship Specialty Start Date End Date Chary Ferris PAC [address] [place] [address] PCP - General Physician Estimating Engineer 11/17/17 Cheo David DO Gastroenterology 05/09/16 Susanna Hickman APRN, SUPERVISOR GROVE Nurse Practitioner Advanced Practice Nurse 05/09/16 Angela Stafford APRN, SUPERVISOR GROVE Nurse Practitioner Advanced Practice Nurse 05/09/16 Gracy Griffith MD [address] [place], [place] [id number] Family Medicine 04/03/17 Cameron Camacho MD #[address] [address] Consulting Physician Endocrinology 12/15/23 Sharon Tai MD [address] [place] [address] Consulting Physician Gastroenterology 12/05/22 Gail Morales APRN, SUPERVISOR GROVE [address] [place] [address] Nurse Practitioner Advanced Practice Nurse 10/06/24 documented as of this encounter
--- OUTSIDE RECORDS SUMMARY | 2024-12-25 13:42 | XMS_ITS | Data Portability ---
Author Organization '[facility] Address [address] [place] [address] [place] [address] Care Team Providers Care Test Development Engineer Name Role Phone NEDA SOSA Primary Care Provider [phone] Assessment Encounter Date Assessment Date Assessment LastModified by Organization Details LastModified Time 04/09/2023 04/09/2023 Annual gynecological exam performed. Patient will come back in a year unless there are new symptoms. Not available 04/09/2023 14:28:36 08/31/2024 08/31/2024 Annual gynecological exam performed. Patient will come back in a year unless there are new symptoms. [email or web address] Not available 08/12/2024 12:35:34 Plan of Treatment Reminders Order Date Submit Date Provider Last Modified By Organization Details Last Modified Time Details Appointments None recorded. Lab hormone panel, serum or plasma 2023 024 [facility] (Lab), [address], [place], [address], 4 04:40:20 Referral None recorded. Procedures None recorded. Surgeries None recorded. Imaging MAMMO, screening, bilateral 2022 023 [email or web address] [facility], [address], [address] [address], [place], [address], 3 15:32:55 Medication Orders Vagifem 10 mcg vaginal tablet 2023 024 ATHENAFAX [facility] [id number] [address], [address], [place], [place], [id number], 4 13:08:21 Vagifem 10 mcg vaginal tablet 2023 024 [facility] [id number] [address], [address], [place], [place], [id number], 4 13:07:13 Patient TargetsNo targets recorded. Patient InstructionsNo instructions recorded. Reason for Referral None Reported. Results Created Date Observation Date Name Description Value Unit Range Abnormal Flag Note LastModifiedBy Organization Detail LastModifiedTime 05/16/20 20 05/21/2020 pap, LB Pap test thin prep Negati ve for Intrae pithel ial Lesion or Malign alisa normal ACCES JEEVAN #: [id number] Sourc e: Cervi yue/E ndoce rvica l LMP: 2019 Date Taken : 05/16 Speci men Type: ThinP rep Vial Date Repor nuno: 2019 Clini yue Data: Cytot ech: Yohana Quevedo r, CT( CP) Date Repor nuno: 2019 Speci men Adequ acy: Satis facto ry for evalu ation Endoc ervic al/tr ansfo rmati on zone compo nent prese nt Gener al Categ oriza tion: NEGAT KIRAN FOR INTRA EPITH ELIAL LESIO N OR MALIG JENNIFER This speci men has been colby zed by the ThinP rep Imagi ng Syste m, an inter activ e compu ter syste m which matilda ts the lab in the scree marcelo of ThinP rep Pap Test slide s. Isrealo imagi ng, the slide was revie wed by a Cytot echno logis t and/o r Patho logis t. D N A A S S A Y S R E P O R T TEST NAME RESUL TS ----- ---- ----- -- HPV High Risk Kareem chapman (TMA) ThinP rep Vial The human papil lomav irus (HPV) High Risk Kareem chapman is an FDA-a pprov ed in-vi tro ampli fied nucle ic acid test for the quali tativ e detec tion of E6/E7 viral mRNA. Resul ts shoul d be corre lated with patie nt prese ntati on, histo ry, cervi yue cytol ogy and other clini yue and labor atory findi ngs. See https ://OffScale/s ites/ defau lt/fi -0 3/AW- 32553 _002_ 01.pd f for furth er infor matio n. Test perfo rmed by [facility] [employer] d/b/a [facility], [address], [place] [address] , Paul Khan ra, DO, Labor atory Dire tor. HPV High Risk *HPV NOT DETEC NUNO (TYPE S 16, 18, 31, 33, 35, 39, 45, 51, 52, 56, 58, 59, 66, 68) *HPV: The human papil lomav irus (HPV) High Risk Kareem chapman is an FDA-a pprov ed in-vi tro ampli fied nucle ic acid test for the quali tativ e detec tion of E6/E7 viral mRNA. Resul ts scout d be corre lated with patie nt prese ntati on, histo ry, cervi yue cytol ogy and other clini yue and labor atory findi ngs. See https ://OffScale/s ites/ defau lt/fi -0 /AW- 93199 _002_ 01.pd f for [facility] er infor matio n. Test perfo rmed by [facility] [employer] [employer] [facility], [address], [facility] [place] [address] , Paul Khan ra, DO, Labor atory Dire tor. End of Repor t Techn ical servi mallory provi ded by [facility] [employer], [employer] [facility], [address] [facility] [place] [address] Alvaro Franklin MD, Labor atory Dire tor. Case revie wed and diagn osis rende red at [facility], d/b/a [facility], [address] [place] [address] Alvaro Franklin MD, [facility]. CONFI DENTI AL Not Available [facility] ([facility]) [address], [place], [address], 05/21/2020 11:15:12 05/16/20 20 05/21/2020 HPV DNA, high- risk HPV high risk NOT DETECT ED normal Not Available [facility] ([facility]) [address], [place], [address], 05/21/2020 11:15:12 04/09/20 23 04/09/2023 IMAGE GUIDE D PAP AND HPV REGAR DLESS image guided Pap, HPV regardless of Pap result SEE RESULT S BELOW CASE REPOR T: Cytol ogy Gynec ologi yue Repor t Case: [id number] Autho jhony g Provi rosa: Carlos Bowen Colle cted: 04/09 1508 [employer] Order ing Locat ion: [place] [facility] Recei jessica: 04/10 0729 First Scree n: Malachi Gallardo , CT Speci men: Scree marcelo Pap - Image d, Cervi x STATE MENT OF ADEQU ACY: Satis facto ry for evalu ation Trans forma tion zone compo nent prese nt FINAL DIAGN OSIS: Negat kiran for Intra epith elial Lesio n or Yasemin reyes (NIL) . Elect demetrius brown d by Malachi Gallardo , CT on 2022 at 9:44 AM ----- ----- ----- ----- ----- ----- ----- ----- ----- ----- ----- ----- ----- ----- ----- ----- ----- ---- HPV RESUL TS: HPV mRNA E6/E7 : No HPV mRNA Detec nuno NOTE: This high risk HPV mRNA assay detec ts fourt een high- risk HPV types (16, 18, 31, 33, 35, 39, 45, 51, 52, 56, 58, 59, 66, 68) witho ut diffe renti ation . COMME NT: This speci men was revie wed by a Cytot echno logis t and/o r Patho logis t (as indic ated in this repor t) after evalu ation using the Thinp rep Imagi ng Syste m. CLINI YUE INFOR MATIO N: Menst rual Statu s: LMP (if appli cable ): Clini yue Histo ry/Pr eviou s Pap: Type of Neopl surendra (if appli cable ): Signi fican t Clini yue Findi ngs: Other Histo ry: Hormo jackson (if appli cable ): PAP EDUCA DAYLIN L NOTE: The Pap Test is a scree marcelo test with an inher ent false negat kiran rate. Liqui d-bas ed sampl ing may decre ase, but will not elimi andrew, false negat kiran resul ts. A negat kiran resul t does not precl ude the prese nce and/o r devel opmen t of disea se, since the prese nce of abnor mal cells in the sampl e depen ds on the locat ion of the lesio n and sampl ing techn ique. Dian nued regul ar scree marcelo is the best metho d of cance r preve ntion . If repor nuno cytol ogic findi ng do not corre late with physi yue and/o r histo rical findi ngs, furth er inves tigat ion is recom andressa d, as clini lelo pickard nted. Not Available [facility] (Lab) [address], [place], [address], 04/14/2023 10:48:12 08/31/20 24 08/31/2024 FSH, LH, ESTRA DIOL estradiol 9.1 pg/mL This assay was perfo rmed using [employer] n reage nts and test kits. Value s obtai horace with other assay metho ds or kits canno t be used inter [facility] . Femal e Estra diol Range s: Folli cular phase 12.4- 233 pg/mL Ovula tion phase 41.0- 398 pg/mL Lutea l phase 22.3- 341 pg/mL Postm enopa usal <5-13 8 pg/mL Healt hy Pregn ant Women 1st Trime ster 154-3 243 pg/mL 2nd Trime ster 1561- 18327 pg/mL 3rd Trime ster 8525- >3000 0 pg/mL Not Available [facility] (Lab) [address] [place], [address], 09/01/2024 04:40:20 08/31/20 24 08/31/2024 FSH, LH, ESTRA DIOL FSH 74.0 mIU/m L This assay was perfo rmed using [employer] reage nts and test kits. Value s obtai horace with other assay metho ds or kits canno t be used inter [facility] . Femal es Folli cular : 3.5-1 2.5 mIU/m L Ovula tion: 4.7-2 1.5 mIU/m L Lutea l: 1.7-7 .7 mIU/m L Postm enopa use: 25.8- 134.8 mIU/m L Not Available [facility] (Lab) [address] [place], [address], 09/01/2024 04:40:20 08/31/20 24 08/31/2024 FSH, LH, ESTRA DIOL LH 44.6 mIU/m L This assay was perfo rmed using [employer] reage nts and test kits. Value s obtai horace with other assay metho ds or kits canno t be used [facility] . Femal es Mid-F ollic ular: 2.4-1 2.6 mIU/m L Mid-C ycle: 14.0- 95.6 mIU/m L Mid-L uteal : 1.0-1 1.4 mIU/m L Postm enopa use: 7.7-5 8.5 mIU/m L Not Available [facility] (Lab) [address], [place], [address], 09/01/2024 04:40:20 Result Notes None recorded. Problems Name Problem SNOMED Code Status Onset Date Resolution Date Notes Provider Name and Address Organization Details Recorded Time Screening for malignant neoplasm of cervix Active 2011 Screening for malignant neoplasms of the cervix;Rec orded Elsewhere: No Locatio n: [facility] rce: EHR Chroni c: N Practice ID: [id number] Billa ble Time: 10:00:00 AM Not Available [facility] 0 16:48:45 Screening for malignant neoplasm of rectum Active 2011 Screening for malignant neoplasms of the rectum;Rec orded Elsewhere: No Locatio n: [facility] rce: EHR Chroni c: N Practice ID: 0001 Billa ble Time: 10:00:00 AM Not Available [facility] 0 16:48:45 Dysfuncti onal uterine bleeding Active 2011 Other disorders of menstruati on and other abnormal bleeding from female genital tract;Jason rded Elsewhere: No Locatio n: [facility] rce: EHR Chroni c: N Practice ID: 0001 Billa ble Time: 04:30:00 PM Not Available [facility] 0 16:48:45 Body mass index 30+ - obesity 886015034 Active 2015 Body mass index (BMI) 36.0-36.9, adult;Jason rded Elsewhere: No Locatio n: [facility] rce: EHR Chroni c: N Practice ID: 0001 Billa ble Time: 02:45:00 PM Not Available [facility] 0 16:48:[address] Concept Active 2017 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) w/o abn findings;R ecorded Elsewhere: No Locatio n: [facility] rce: EHR Chroni c: N Practice ID: 0001 Billa ble Time: 10:30:00 AM Not Available [facility] 0 16:48:45 Mammograp hy abnormal [id number] Active 2014 Unspecifie d abnormal mammogram; Recorded Elsewhere: No Locatio n: [facility] rce: EHR Chroni c: N Practice ID: 0001 Billa ble Time: 10:57:21 AM Not Available [facility] 0 16:48:45 Specializ ed medical examinati on Active 2011 Gynecologi yue Examinatio n;Recorded Elsewhere: No Locatio n: [facility] rce: EHR Chroni c: N Practice ID: 0001 Billa ble Time: 10:00:00 AM Not Available [facility] 0 16:48:[address] Concept Active 2016 Encntr for general adult medical exam w/o abnormal findings;R ecorded Elsewhere: No Locatio n: [facility] rce: EHR Chroni c: N Practice ID: 0001 Billa ble Time: 03:30:00 PM Not Available [facility] 0 16:48:45 test negative 625161560 Active 2013 examinatio n or test, negative result;Rec orded Elsewhere: No Locatio n: [facility] rce: EHR Chroni c: N Practice ID: 0001 Billa ble Time: 02:00:00 PM Not Available [facility] 0 16:48:45 Adult health examinati on Active 2013 ROUTINE MEDICAL EXAM;Recor ded Elsewhere: No Locatio n: [facility] rce: EHR Chroni c: N Practice ID: 0001 Billa ble Time: 02:00:00 PM Not Available [facility] 0 16:48:45 Obesity 915158389 Active 2014 Obesity;Re corded Elsewhere: No Locatio n: [facility] rce: EHR Chroni c: N Practice ID: 0001 Billa ble Time: 01:30:00 PM Not Available [facility] 0 16:48:46 Female genital organ symptoms 428865646 Active 2013 Unspecifie d symptom associated with female genital organs;Rec orded Elsewhere: No Locatio n: [facility] rce: EHR Chroni c: N Practice ID: 0001 Billa ble Time: 01:30:00 PM Not Available [facility] 0 16:48:46 Urinary tract infectiou s disease 71250214 Active 2013 Urinary Tract Infection; Recorded Elsewhere: No Locatio n: [facility] rce: EHR Chroni c: N Practice ID: 0001 Billa ble Time: 02:00:00 PM Not Available [facility] 0 16:48:46 Lymphaden opathy 37457112 Active 2010 Enlargemen t of lymph nodes;Prac kale ID: 0001 Not Available [facility] 0 16:48:46 Problem Notes None recorded. Procedures Surgical History Date Name Laterality Status Provider Name and Address Organization Details Recorded Time 4 Date of Last Mammogram completed [facility] 08/31/2024 12:25:50 3 Date of Last Pap Smear completed [facility] 08/12/2024 12:37:59 1 completed [facility] 12/21/2021 16:34:31 1 Date of Last Colonoscopy completed [facility] 08/31/2024 12:31:[address] [facility] 05/15/2020 10:28:[address] [facility] 05/15/2020 10:28:20 tonsilectomy/ad enoids completed [facility] 12/21/2021 16:34:[address] [facility] 05/15/2020 10:27:45 Imaging Results None recorded. Procedure Notes None recorded. Medical Equipment None Reported. Allergies Allergen ID Allergen Name Allergen Category Reaction Reaction Severity Criticality Documentation Date Start Date Code Code System Note Provider Name and Address Organization Details Recorded Time 1301 acetamino phen medicatio n Not available Not available Not available 05/15/2020 161 RxNorm Emely Ramirez [facility], [facility] 0 10:26:26 1302 adhesive tape environme nt,medica tion Not available Not available Not available 05/15/2020 71558 UNK Emely Ramirez [facility], [facility] 0 10:26:43 21195 diclofena c Not available Not available Not available Not available 08/31/2024 3355 RxNorm Kaylan Jackson [facility], [facility] 4 12:26:46 Medications Name Sig Start Date Stop Date Status Note LastModified by Organization Details LastModified Time amoxicill in 500 mg capsule TAKE 4 CAPSULES BY MOUTH 1 HOUR PRIOR TO APPOINTM ENT 08/31 completed Not Available Not Available Not Available azithromy michelle 250 mg tablet TAKE 2 TABLETS BY MOUTH TODAY, THEN TAKE 1 TABLET DAILY FOR 4 DAYS 04/09 completed Not Available Not Available Not Available fluconazo le 150 mg tablet 04/09 completed Not Available Not Available Not Available atenolol 100 mg tablet TAKE 1/2 TABLET BY MOUTH DAILY 08/31 completed Not Available Not Available Not Available meloxicam 15 mg tablet TAKE 1 TABLET (15 MG TOTAL) BY MOUTH DAILY. 08/31 completed Not Available Not Available Not Available phenazopy ridine 200 mg tablet TAKE 1 TABLET BY MOUTH 3 TIMES A DAY NEEDED FOR PAIN 04/09 completed Not Available Not Available Not Available atenolol 25 mg tablet TAKE 1 TABLET BY MOUTH EVERY DAY active Not Available Not Available No t Available Gaye 60 mg tablet take 1 tablet by oral route 2 times every day 04/09 completed Prescrib ed Elsewher e: Yes Loca tion: [facility] M odify By: vanessa brasher DateTime : 12/14/19 12 03:46:43 PM Not Available Not Available Not Available Flonase 50 mcg/actua tion nasal spray,lu pension spray 1 spray by intranas al route every day in each nostril 10/29 completed Prescrib ed Elsewher e: Yes Loca tion: [facility] odify By: tahira mg DateTime : 07/01/20 12 04:30:00 PM Not Available Not Available Not Available famotidin e 20 mg tablet TAKE 1 TABLET BY MOUTH TWICE A DAY active Not Available Not Available No t Available methotrex ate sodium 2.5 mg tablet TAKE 4 TABLETS BY MOUTH EVERY 7 DAYS. active Not Available Not Available No t Available ranitidin e 150 mg tablet 04/09 completed Not Available Not Available Not Available cevimelin e 30 mg capsule TAKE 1 CAPSULE BY MOUTH THREE TIMES A DAY active Not Available Not Available No t Available Advair Diskus 250 mcg-50 mcg/dose powder for inhalatio n INHALE 1 PUFF BY MOUTH EVERY MORNING AND EVERY NIGHT AT BEDTIME. RINSE MOUTH AFTER USE. active Not Available Not Available No t Available folic acid 1 mg tablet TAKE 1 TABLET BY MOUTH EVERY DAY active Not Available Not Available No t Available monteluka st 10 mg tablet TAKE 1 TABLET BY MOUTH EVERY DAY active Not Available Not Available No t Available ranitidin e 150 mg capsule take 1 capsule by oral route 2 times every day 04/09 completed Prescrib ed Elsewher e: Yes Loca tion: [facility] odify By: tahiar mg DateTime : 10/29/20 18 10:30:00 AM Not Available Not Available Not Available zolpidem 10 mg tablet TAKE 1 TABLET BY MOUTH EVERY DAY AT BEDTIME NEEDED FOR SLEEP 08/31 completed Not Available Not Available Not Available scopolami ne 1 mg over 3 days transderm al patch APPLY 1 PATCH 4 HOURS BEFORE EVENT, WEAR FOR 72 HOURS. 04/09 completed Not Available Not Available Not Available methylpre dnisolone 4 mg tablets in a dose pack TAKE 6 TABLETS ON DAY 1 DIRECTED ON PACKAGE AND DECREASE BY 1 TAB EACH DAY FOR A TOTAL OF 6 DAYS 08/31 completed Not Available Not Available Not Available albuterol sulfate HFA 90 mcg/actua tion aerosol inhaler INHALE 2 PUFFS BY MOUTH EVERY 6 HOURS NEEDED FOR WHEEZING active Not Available Not Available No t Available ondansetr on 4 mg disintegr ating tablet TAKE 1 TABLET BY MOUTH EVERY 8 HOURS NEEDED FOR NAUSEA FIRST LINE active Not Available Not Available No t Available atenolol 50 mg tablet take 1 tablet by oral route every day 08/31 completed Prescrib ed Elsewher e: Yes Loca tion: [facility] odify By: vanessa Garrett r DateTime : 12/14/19 12 03:46:43 PM Not Available Not Available Not Available naproxen 500 mg tablet TAKE 1 TABLET BY MOUTH TWICE A DAY NEEDED FOR MILD OR MORE SEVERE PAIN active Not Available Not Available No t Available tobramyci n 0.3 %-dexamet hasone 0.1 % eye drops,lu pension INSTILL 1 DROP INTO RIGHT EYE 4 TIMES A DAY FOR 14 DAYS 08/31 completed Not Available Not Available Not Available azithromy michelle 500 mg tablet TAKE 1 TABLET BY MOUTH DAILY FOR 3 DAYS. TAKE FOR TRAVELER S DIARRHEA 08/31 completed Not Available Not Available Not Available cyclobenz aprine 5 mg tablet TAKE 2 TABLETS BY MOUTH EVERY DAY NEEDED active Not Available Not Available No t Available nitrofura ntoin monohydra te/macroc rystals 100 mg capsule TAKE 1 CAPSULE BY MOUTH TWICE A DAY FOR 5 DAYS 04/09 completed Not Available Not Available Not Available duloxetin e 30 mg capsule,d elayed release TAKE 1 CAPSULE BY MOUTH EVERY DAY active Not Available Not Available No t Available duloxetin e 60 mg capsule,d elayed release TAKE 1 CAPSULE BY MOUTH EVERY DAY 08/31 completed Not Available Not Available Not Available Cymbalta 20 mg capsule,d elayed release take 1 capsule by oral route 2 times every day 08/31 completed Prescrib ed Elsewher e: Yes Loca tion: [facility] M odify By: vanessa Garrett r DateTime : 12/14/19 12 03:46:43 PM Not Available Not Available Not Available Lyrica 150 mg capsule Take 1 capsule twice a day by oral route. active Not Available Not Available No t Available Lyrica 225 mg capsule take 1 capsule by oral route 2 times every day 08/31 completed Prescrib ed Elsewher e: Yes Loca tion: [facility] odify By: vanessa Garrett r DateTime : 12/14/19 12 03:46:43 PM Not Available Not Available Not Available Jolessa 0.15 mg-30 mcg (91) tablets,3 month dose pack TAKE 1 TABLET BY MOUTH EVERY DAY 10/29 completed Prescrib ed Elsewher e: No Locat ion: [facility] odify By: tahira mg DateTime : 08/03/20 18 09:28:02 AM Not Available Not Available Not Available Amrix 15 mg capsule,e xtended release take 1 capsule by oral route every day 04/09 completed Prescrib ed Elsewher e: Yes Loca tion: [facility] odify By: tahira cookuntignacio DateTime : 10/29/20 18 10:30:00 AM Not Available Not Available Not Available Dexilant 60 mg capsule, delayed release TAKE 1 CAPSULE BY MOUTH EVERY DAY active Not Available Not Available No t Available Dexilant 30 mg capsule, delayed release take 1 capsule by oral route every day 04/09 completed Prescrib ed Elsewher e: Yes Loca tion: [facility] odify By: mayra brasher DateTime : 05/10/20 15 01:30:00 PM Not Available Not Available Not Available Breo Ellipta 100 mcg-25 mcg/dose powder for inhalatio n INHALE 1 PUFF BY MOUTH EVERY DAY active Not Available Not Available No t Available Viberzi 100 mg tablet TAKE 1 TABLET BY MOUTH TWICE A DAY 08/31 completed Not Available Not Available Not Available Viberzi 75 mg tablet take 1 tablet by oral route 2 times every day 04/09 completed Prescrib ed Elsewher e: Yes Loca tion: [facility] odify By: endy mg DateTime : 07/23/20 17 03:30:00 PM Not Available Not Available Not Available Yuvafem 10 mcg vaginal tablet INSERT 1 TABLET TWICE A WEEK BY VAGINAL ROUTE, FOR MAINTENA NCE DOSING. active Not Available Not Available No t Available Shingrix (PF) 50 mcg/0.5 mL intramusc ular suspensio n, kit 04/09 completed Not Available Not Available Not Available Flucelvax Quad (PF) 60 mcg (15 mcg x 4)/0.5 mL IM syringe 04/09 completed Not Available Not Available Not Available COVID-19 test specimen collectio n USE 1 KIT TODAY DIRECTED 04/09 completed Not Available Not Available Not Available Paxlovid 300 mg (150 mg x 2)-100 mg tablets in a dose pack PLEASE SEE ATTACHED FOR DETAILED DIRECTIO NS 04/09 completed Not Available Not Available Not Available Vitals Date Recorded Body height Body mass index (BMI) Body weight Systolic blood pressure Diastolic blood pressure Provider Name and Address Organization Details Last Updated DateTime 12/21/2021 170.18 cm 37.6 kg/m2 468162.1 7 g 118 mm[Hg] 76 mm[Hg] Sahara Mendoza [facility] 2 16:34:24 Date Recorded Body weight Body mass index (BMI) Body height Systolic blood pressure Diastolic blood pressure Provider Name and Address Organization Details Last Updated DateTime 05/16/2020 505859.3 9 g 37.1 kg/m2 170.18 cm 110 mm[Hg] 76 mm[Hg] Edith Rodríguez [facility] 0 09:55:21 Date Recorded Body height Body mass index (BMI) Body weight Systolic blood pressure Diastolic blood pressure Provider Name and Address Organization Details Last Updated DateTime 04/09/2023 170.18 cm 37 kg/m2 471858.8 g 101 mm[Hg] 70 mm[Hg] Merry Dumas [facility] 3 14:29:17 Date Recorded Body height Body mass index (BMI) Body weight Systolic blood pressure Diastolic blood pressure Provider Name and Address Organization Details Last Updated DateTime 08/31/2024 170.18 cm 31.6 kg/m2 87603.22 g 108 mm[Hg] 72 mm[Hg] Kaylan Jackson [facility] 4 12:25:44 Social History Question Answer Notes LastModified by Organizat ion Details LastModified Time Tobacco Smoking Status Never Smoker Sahara Mendoza [facility] 12/21/2021 16:34:38 Do You Have An Advance Directive? Yes Information not available 12/21/2021 What Is Your Level Of Alcohol Consumption? Occasional Information not available 05/16/2020 Are You Blind Or Do You Have Difficulty Seeing? No Information not available 12/21/2021 What Is Your Level Of Caffeine Consumption? Occasional [email or web address] Information not available 08/31/2024 How Much Tobacco Do You Chew? None Information not available 12/21/2021 In The 14 Days Before Symptom Onset, Have You Had Close Contact With A Laboratory-confir med COVID-19 While That Case Was Ill? No Information not available 12/21/2021 In The 14 Days Before Symptom Onset, Have You Had Close Contact With A Person Who Is Under Investigation For COVID-19 While That Person Was Ill? No Information not available 12/21/2021 Have You Been To An Area Known To Be High Risk For COVID-19? No Information not available 04/09/2023 Are You Deaf Or Do You Have Serious Difficulty Hearing? No Information not available 12/21/2021 What Type Of Diet Are You Following? REGULAR Information not available 12/21/2021 Which Illicit Or Recreational Drugs Have You Used? Marijuana Information not available 12/21/2021 What Is The Highest Grade Or Level Of School You Have Completed Or The Highest Degree You Have Received? 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 Yes Information not available 12/21/2021 Do You Use Protection During Sex? No Information not available 12/21/2021 Do You Use Your Seat Belt Or Car Seat Routinely? Yes Information not available 12/21/2021 Do You Have Smoke And Carbon Monoxide Detectors In Your Home? Yes Information not available 12/21/2021 How Much Tobacco Do You Smoke? No Information not available 12/21/2021 Do You Feel Stressed (tense, Restless, Nervous, Or Anxious, Or Unable To Sleep At Night)? [id number] Information not available 12/21/2021 Do You Use Any Illicit Or Recreational Drugs? No Information not available 12/21/2021 Do You Use Sunscreen Routinely? Yes Information not available 12/21/2021 Have You Used IV Drugs? No Information not available 12/21/2021 Sex: Unknown Functional Status Question Answer Note LastModified by Organizat ion Details LastModified Time Are you able to walk? YESWOREST Information not available 12/21/2021 What is your exercise level? Occasional Information not available 05/16/2020 Mental Status None recorded. Family History Relationship Description Onset Age of this Age Resolved Age Notes LastModified by Organization Details LastModified Time Paternal Aunt Family history of breast cancer [email or web address] Not available 2023 12:18:02 Mother Polyp polyp cancer [email or web address] Not available 08/31/2024 12:18:02 Mother Hypertensive disorder [email or web address] Not available 2019 10:24:58 Maternal Grandfather Malignant tumor of colon [email or web address] Not available 2019 10:24:46 Father Diabetes mellitus type 2 [email or web address] Not available 2019 10:25:13 Father Kidney disease Not available 2021 16:34:28 Father Disorder of thyroid gland Not available 2021 16:34:28 Father Heart disease Not available 2021 16:34:28 Paternal Grandmother Malignant tumor of ovary jgumber Not available 2019 10:25:31 Paternal Grandfather Primary malignant neoplasm of head [email or web address] Not available 2023 12:18:02 Notes:2 P Aunt: Cancer, jm st Father: type 2 diabetes Maternal grandfather: Cancer, colon Mother: Hypertension, Colon polyps Paternal grandfather: Head cancer Paternal grandmother: Ovarian cancer Medical History Condition Response Allergies (Food, seasonal, environmental ) Y Autoimmune disease Y Heart Problems Y Other Drug/Latex Allergies/Reactions Y Acid Reflux (GERD) Y Fibromyalgia Y Urinary Tract Infection Y Thyroid Problems Y Gynecological History Statement/Question Response Date of Last Mammogram 11/27/2023 Date of LMP 06/27/2021 Y STIs/STDs N Was last menstrual period normal N HPV Vaccine N Current Control Method None If Post Menopausal, Age at Menopause 56 Date of Last Colonoscopy 11/03/2020 Sexually Active? Y Menses Monthly N Age of first menstrual cycle 17 Date of Last Pap Smear 04/09/2023 Sexual Problems? Y 10/22/2021 N Obstetrics History GPAL:G 0 P 0 0 0 0 Past Encounters Encounter ID Performer Location Encounter Start Date Encounter Closed Date Diagnosis/Indication Diagnosis SNOMED-CT Code Diagnosis ICD10 Code Diagnosis Note [id number] Edith Rodríguez [address] [address] 05/16/2020 09:36:48 05/16/2020 10:36:34 Gynecologic examination [id number] Z01.419 Take Calcium with Vitamin D 12-1500mg daily. Do monthly self breast exams. It is advised to get annual flu shot in the fall and she could obtain at [facility] or [facility] care clinic. If you haven't received the Tdap vaccine in the last 10 years you should obtain one as well. Have mammogram yearly, bone density every 2-3 years and colonoscop y every 5-10 years depending on findings and history. Engage in daily exercise of low impact aerobic exercise 45-60 minutes 4-5 times weekly. Avoid tobacco and illicit drugs as well as using moderation with alcohol intake less than 1-2 8 oz beverages daily. This lifestyle behavior pattern will lead to less health conditions and longer life span. If BMI greater than 25 weight watchers or dietary consult advised. Questions have been answered. Patient appears to understand instructio ns, but if you have any further questions call or respond to this email.p [id number] Clem Ponce MD [place] [address] [address] 12/21/2021 16:26:18 12/22/2021 09:09:50 Lesion of vulva [id number] N90.89 this patient is a 56-year-ol d female who presents for vulvar lesion. Patient reports a cutaneous nodule. Is on the right side of the vulva. Is size of a pencil eraser. It is not mobile, it is smooth edged. Examinatio n revealed a 7 mm lesion that is cutaneous that appeared to be filled with the white waxy material. The roof of the lesion was cut with a scalpel after cleaning with Betadine. The waxy material was expressed. Precaution s. She is asked follow-up as needed. [id number] [facility] [address] [address] 04/09/2023 13:59:23 04/09/2023 14:46:46 Gynecologic examination [id number] Z01.419 Take Calcium with Vitamin D 12-1500mg daily. Do monthly self breast exams. It is advised to get annual flu shot in the fall and she could obtain at [facility] or [facility] care clinic. If you haven't received the Tdap vaccine in the last 10 years you should obtain one as well. Have mammogram yearly, bone density every 2-3 years and colonoscop y every 5-10 years depending on findings and history. Engage in daily exercise of low impact aerobic exercise 45-60 minutes 4-5 times weekly. Avoid tobacco and illicit drugs as well as using moderation with alcohol intake less than 1-2 8 oz beverages daily. This lifestyle behavior pattern will lead to less health conditions and longer life span. If BMI greater than 25 weight watchers or dietary consult advised. Questions have been answered. Patient appears to understand instructio ns, but if you have any further questions call or respond to this email Pap/hpv sentSTD Screen declinedGe netic Screen discussedC olon Screen UTD PCPDexa Screen UTD PCPRoutine Labs UTD PCP Screening mammography 24 198350 Z12.31 [id number] KATHRIN KELLY NP [place] [address] [address] 08/31/2024 12:17:53 08/31/2024 13:18:52 Gynecologic examination [id number] Z01.419 Annual gynecologi yue exam performed. Patient will come back in a year unless there are new symptoms. Suggest Calcium with Vitamin D if not eating in diet. Patient advised to get annual flu shot. Recommend yearly physicals and perform monthly breast exams. Genetic testing is available for patients with family history of cancer. Engage in safe sexual practices, use condoms. Encouraged to have daily exercise. Avoid tobacco and illicit drugs, moderation of alcohol. If BMI greater than 25 dietary consult advised. If you have any questions please call or email. mammogram- Due in November 2024, pt to schedule at [facility] (PCP orders) colon cancer screening - UTD - PCP DEXA scan- n/a Pap smear- UTD (2022 - NILM, HPV neg), will repeat in 2025 per ASCCP guidelines . 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 Patient to insert one tablet at bedtime vaginally once nightly for 2 weeks, then twice weekly for maintenanc e dosing. Patient to call with any questions or concerns.P atient to continue use coconut or olive oil as lubricatio n PRN as well.Will check hormone levels to evaluate for menopause. Discussed that any vaginal bleeding after menopause (1 year without a period) should be reported and evaluated further. Counseled on the following: Vaginal Dryness: Bothersome symptoms of the vagina and vulva (outer lips of the vagina) increase during and after the menopause transition or may start several years after menopause. The decrease in estrogen with menopause is a major contributo r to vaginal dryness, itching, burning, discomfort , and pain during intercours e or other sexual activity. Vaginal atrophy is the medical term that describes these changes. The genitourin cornell syndrome of menopause includes bothersome vaginal atrophy often combined with urinary symptoms. Vaginal atrophy may significan tly affect your quality of life, sexual satisfacti on, and relationsh ip with your partner. Unlike hot flashes, which generally improve with time, vaginal symptoms typically worsen with time because of aging and a prolonged lack of estrogen. Vaginal estrogen therapy An effective and safe treatment, low-dose local estrogen is applied directly to the vagina to restore vaginal health and relieve vaginal dryness and discomfort with sexual activity. Improvemen ts usually occur within a few weeks, although complete relief may take several months. This even may be an option for women with a history of breast or uterine cancer but only after careful considerat ion of risks and benefits with a healthcare provider and oncologist . Government -approved low-dose vaginal estrogen products are available by prescripti on as vaginal creams (used two or three nights/welaury k), a vaginal estradiol tablet (used twice/week ), and an estradiol vaginal ring (changed every 3 months). All are highly effective. You may wish to try several different forms and choose the one you prefer. Standard doses of estrogen therapy provided to treat hot flashes also treat vaginal dryness, although some women still benefit from additional low-dose vaginal estrogen treatment. If only vaginal symptoms are present, low doses of estrogen applied to the vagina are recommende d. Health Concerns Section Related Observation LastModified by Organization Detai ls LastModified Time None Recorded Concern Status LastModified by Organization Details LastModified Time None Recorded Advance Directives Directive Y: Payers Encounter Date Sequence Insurance Name Policy Number Policy Limon Covered Member ID Limon Member ID Guarantor Name 12/21/2021 1 [place] [id number] Ginny Henry [id number] Ginny Henry 04/09/2023 1 [place] [id number] Ginny Henry [id number] 75 Ginny Henry 08/31/2024 1 [place] [id number] Ginny Henry [id number] 75 Ginny Henry Notes Date Note Type Note Provider Name and Address Organization Details Recorded Time 05/16/2020 text/html Annual GYNReport ed bypatient.Menstrua l cycle:Normal menses Urinary symptoms:No hematuria; No incontinence Vulva:No genital lesion Vagina:Normal vaginal discharge Breast:No breast pain; No breast lump; No nipple discharge Sexual complaints:No sexual complaints; No pain during intercourse; Normal libido Menopausal Symptoms:No menopausal symptoms; Normal vaginal lubrication Psychological symptoms:No depression; No anxiety; No PMDD Edith cardoza [facility] 05/16/2020 10:12:11 12/21/2021 text/html this patient is a 56-year-old female who presents for vulvar lesion. Patient reports a cutaneous nodule. Is on the right side of the vulva. Is size of a pencil eraser. It is not mobile, it is smooth edged. Examination revealed a 7 mm lesion that is cutaneous that appeared to be filled with the white waxy material. The roof of the lesion was cut with a scalpel after cleaning with Betadine. The waxy material was expressed. Precautions. She is asked follow-up as needed. Clem Ponce MD [address], [place], [address], [facility] 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 Post-MenopausalRep orted bypatient.Menopaus al Symptoms:no menopausal symptoms; normal vaginal lubrication Vaginal Bleeding:history of menopause having occurred; no history of post menopausal bleeding Urinary Symptoms:no hematuria; no incontinence; no nocturia; no urinary frequency Vulva:no genital lesion; no vulvar atrophy Vagina:normal vaginal discharge; no vaginal atrophy Breast:no breast lump; no nipple discharge; no breast pain Sexual Complaints:no sexual complaints Psychological Symptoms:no depression; no anxiety Preventive Measures:encourage regular mammograms starting age 40; encourage self breast examination; encourage regular exercise; encourage no tobacco use; needs to schedule mammogram; history of recent colonoscopy BAILEE Rivera- [address], [place], [address], [facility] 04/09/2023 14:46:39 08/31/2024 text/html Annual GYNReport ed bypatient.Urinary symptoms:No hematuria; No incontinence Vulva:No genital lesion Vagina:Normal vaginal discharge Breast:No breast pain; No breast lump; No nipple discharge Sexual complaints:No sexual complaints; Normal libido;Pain during intercourse Menopausal Symptoms:Hot flashes;Inadequacy of lubrication of vaginal mucosa Psychological symptoms:No depression; No anxiety; No PMDD Preventive measures:Encourage self breast examination; Encourage regular exercise; Encourage no tobacco use; Encourage regular mammograms starting age 40; Mammogram performed within the past year; Up to date on colonoscopy screening Patient presents for annual well woman exam. Patient reports vaginal dryness and dyspareunia. Patient states that olive oil has helped her vaginal irritation and dryness when she uses it as needed. Reports intermittent hot flashes that are not bothersome. Patient's last period was September 2023, pt requests hormone testing for menopause. KATHRIN KELLY NP [address], [place], [address], [place] [facility] 08/31/2024 13:14:45 OBGyn Episode No OBEpisode recorded.
--- OUTSIDE RECORDS SUMMARY | 2024-12-25 13:42 | XMS_ITS | Encounter Summary ---
Author Organization [facility] Address [address] [place] [address] Phone Care Team Providers Care Assemblies And Installations Inspector Name Role Phone Cheo David DO Unavailable [phone] Susanna Hickman HOUSE WORKER GENERAL, POWDER COAT PAINTER Unavailable Angela Stafford HOUSE WORKER GENERAL, POWDER COAT PAINTER Unavailable Gracy Griffith MD Unavailable Chary Ferris Primary Care Provider + Cameron Camacho MD Unavailable Sharon Tai MD Unavailable [phone] Gail Moraels APRN, POWDER COAT PAINTER Unavailable Reason for Visit * Reason Comments Medication Refill Encounter Details Date Type Department Care Team (Late st Contact Info) Description 06/04/2024 Refill [facility] - Family Medicine - [place] [address] [place] [phone] Chary Ferris PAC [address] [place] [address] Medication Refill Social History Tobacco Use Types [...] Master's degree (e.g., MA, MS, Shay, MEd, DRUG CLERK, SYED) 11/29/2020 Sexually Active Control Partners Comments Yes Comments No Sex and Gender Information Value Date Recorded Sex Assigned at Not on file Legal Sex Female 10:48 PM CDT Gender Identity Not on file Sexual Orientation Not on file 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 Atenolol Dispensed Days Supply Quantity Provider Pharmacy ATENOLOL 100 MG TABLET 06/01/2024 90 45 Each Chary Ferris, PAC [facility] .. documented in this encounter Plan of Treatment Upcoming Encounters Date Type Department Care Team (Late st Contact Info) Description 03/16/2025 11:30 AM CDT Office Visit [facility] - Endocrinology - [place] [address] [place] [phone] Cameron Camacho MD [address] [address] 04/05/2025 2:00 PM CDT Office Visit [facility] - Gastroenterology - [place] [address] [place] [address] Gail Morales APRN, POWDER COAT PAINTER [address] [place] [address] 05/26/2025 11:15 AM CDT Office Visit [facility] - [facility] - [place] [address] [place] [phone] Chray Ferris PAC [address] [place] [address] documented as of this encounter Visit Diagnoses Not on filedocumented in this encounter Additional Health Concerns Assessment Noted Time PHQ-9 Depression Total Score: 0 07/28/20 23 9:43 AM CDT documented as of this encounter Care Teams Assemblies And Installations Inspector Relationship Specialty Start Date End Date Chary Ferris PAC [address] [place] [address] PCP - General Physician Paper Wood Cutter 11/17/17 Cheo David DO Gastroenterology 05/09/16 Susnana Hickman, HOUSE WORKER GENERAL, POWDER COAT PAINTER Nurse Practitioner Advanced Practice Nurse 05/09/16 Angela Stafford, PRISCA, POWDER COAT PAINTER Nurse Practitioner Advanced Practice Nurse 05/09/16 Gracy Griffith MD [address] [place] [address] Family Medicine 04/03/17 Cameron Camacho MD [address] [address] Consulting Physician Endocrinology 12/15/23 Sharon Tai MD [address] [place] [address] Consulting Physician Gastroenterology 12/05/22 Gail Morales APRN, POWDER COAT PAINTER [address] [place] [address] Nurse Practitioner Advanced Practice Nurse 10/06/24 documented as of this encounter
--- OUTSIDE RECORDS SUMMARY | 2024-12-25 13:42 | XMS_ITS | Clinical Summary ---
Author Organization [facility] [employer] Address [address] [facility] [place] [address] Care Team Providers Care Core Drilling Supervisor Name Role Phone Unavailable Primary Care Provider Unavailabl e Source Comments [facility],non-owned Affiliates and Associated Physician Practices is amultiple site organization consisting of ambulatory clinics and hospital sitesin [place], [place], [place] and [place]. This disclosure is being madepursuant to the Care Everywhere program and may not contain all information available regarding this patient. Last updated 18.[facility] [employer] Allergies Active Allergy Reactions Criticality Noted Date [...] Active Active Problems No known active problems Family History Medical History Relation Name Comments Diabetes Father Cancer Maternal Grandfather Arthritis - Rheumatoid Maternal Grandmother Arthritis - Rheumatoid Mother Hypertension Mother Migraine Mother Cancer Paternal Grandfather Cancer Paternal Grandmother Migraine Sister 2 Relation Name Status Comments Father Alive Maternal Grandfather Maternal Grandmother Mother Alive Paternal Grandfather Paternal Grandmother Sister 1 Alive Sister 2 Social History Tobacco Use Types Packs/Day Years [...] Comments Blood Pressure 103/53 12/25/2012 7:58 AM ADON Pulse 66 12/25/2012 7:58 AM ADON Temperature 36.7 C (98 F) 12/25/2012 7:58 AM ADON Respiratory Rate 16 12/25/2012 7:58 AM ADON Oxygen Saturation 96% 12/25/2012 7:58 AM ADON Inhaled Oxygen Concentration - - Weight 100.3 kg (221 lb 1.9 oz) 12/24/2012 8:46 AM ADON Height 170.2 cm (5' 7 ) 12/24/2012 8:46 AM ADON Body Mass Index 34.63 12/24/2012 8:46 AM ADON Plan of Treatment Health Maintenance Due Date Last Done Comments COLOGUARD (AGES 45-75) - COL ON CA SCREENING 1967 COLON MONITORING 1967 COLONOSCOPY - COLON CA SCREENING 1967 CT COLONOGRAPHY - COLON CA SCREENING 1967 Colorectal Cancer Screening 1967 FIT - COLON CA SCREENING 1967 FLEX SIG - COLON CA SCREENING 1967 LIPID TESTING 1967 MAMMOGRAM 1967 PAP SMEAR 1967 HIV SCREENING 1982 HEPATITIS C SCREENING 08/09/1985 DTAP/TDAP/TD VACCINES (1 - Tdap) 1986 HEPATITIS B VACCINE (1 of 3 - 19+ 3-dose series) 1986 PNEUMOCOCCAL VACCINE 50+ (1 of 1 - PCV) 2017 ZOSTER VACCINE (1 of 2) 2017 COVID-19 VACCINE (2023-2 5 season) 2024 INFLUENZA VACCINE (#1) 2024 DEPRESSION SCREENING 11/03/2024 HIB VACCINE Aged Out No longer eligi ble based on patient's age to complete this topic HPV VACCINE Aged Out No longer eligi ble based on patient's age to complete this topic MENINGOCOCCAL (Group B) VACCINE Aged Out No longer eligible based on patient's age to complete this topic MENINGOCOCCAL VACCINE Aged Out No chiksi stevie eligible based on patient's age to complete this topic Advance Directives * FULL RESUSCITATION (Latest Code Status on File) Date Activated Date Inactivated Comments 12/24/2012 3:05 PM 12/25/2012 12:10 PM
--- OUTSIDE RECORDS SUMMARY | 2024-12-25 13:42 | XMS_ITS | Patient Health Summary ---
Author Organization [facility] [employer] Address [address] [place] [address] Care Team Providers Care Wardrobe Manager Name Role Phone Unavailable Primary Care Provider Unavailabl e Note from [facility],non-owned Affiliates and Associated Physician Practices is amultiple site organization consisting of ambulatory clinics and hospital sitesin [place], [place], [place] and [place]. This disclosure is being madepursuant to the Care Everywhere program and may not contain all information available regarding this patient. Last updated 18.[facility] [employer] Allergies * Adhesive Sensitivity * Tramadol(NIGHTMARES-STARTLED AND BIT HER TONGUE) * Acetaminophen(Itching) -High Criticality * Hydrocodone-Acetaminophen(KEPT ME AWAKE) Medications * Be aware that medications may not be up to date on this document. Alwaysverify current medications with the patient. * fluticasone hfa 110 (FLOVENT HFA 110) 110 MCG/ACT inhaler Inhale 2 Puffs by mouth once daily after breakfast. * fexofenadine (ALEXYS) 180 MG tablet Take 180 mg by mouth once daily after breakfast. * DULoxetine (CYMBALTA) 60 MG capsule Take 60 mg by mouth once daily after breakfast. * atenolol (TENORMIN) 25 MG tablet Take 25 mg by mouth at bedtime. * levonorgestrel-ethinyl estradiol (JOLESSA) tablet Take 1 Tab by mouth once daily. * Multiple Vitamin (MULTI-VITAMIN PO) Take by mouth. * cyclobenzaprine (FLEXERIL) 10 MG tablet(Started 02/08/2013) Take 1 Tab by mouth every 8 hours as needed for Muscle Spasms. 1 refill left * pregabalin (LYRICA) 75 MG capsule Take 75 mg by mouth 2 times daily. Active Problems No known active problems Social [...] Comments Blood Pressure 103/53 12/25/2012 7:58 AM LAST CODE STRIPER Pulse 66 12/25/2012 7:58 AM LAST CODE STRIPER Temperature 36.7 C (98 F) 12/25/2012 7:58 AM LAST CODE STRIPER Respiratory Rate 16 12/25/2012 7:58 AM LAST CODE STRIPER Oxygen Saturation 96% 12/25/2012 7:58 AM LAST CODE STRIPER Inhaled Oxygen Concentration - - Weight 100.3 kg (221 lb 1.9 oz) 12/24/2012 8:46 AM LAST CODE STRIPER Height 170.2 cm (5' 7 ) 12/24/2012 8:46 AM LAST CODE STRIPER Body Mass Index 34.63 12/24/2012 8:46 AM LAST CODE STRIPER Procedures * XR CERVICAL SPINE 2 OR 3VW(Performed 07/30/2013) Performed for Neck pain * XR CERVICAL SPINE 1VW(Performed 12/24/2012) Performed for S/P cervical spinal fusion * XR CERVICAL SPINE 1VW(Performed 12/24/2012) Performed for Neck pain * XR CERVICAL SPINE 1VW(Performed 12/24/2012) Performed for Neck pain * XR CERVICAL SPINE 1VW(Performed 12/24/2012) Performed for Neck pain * HCG URINE QUALITATIVE - POINT OF CARE(Performed 12/24/2012) * TYPE + SCREEN PANEL(Performed 12/15/2012) Performed for Other specified pre-operative examination * HGB HCT PANEL(Performed 12/15/2012) Performed for Other specified pre-operative examination * URINALYSIS REFLEX MICROSCOPIC REFLEX CULTURE(Performed 12/15/2012) Performed for Other specified pre-operative examination * CULTURE URINE(Performed 12/15/2012) * EKG 12-LEAD(Performed 12/15/2012) Performed for Other specified pre-operative examination * IMAGING/RADIOLOGY/XRAY RESULTS ORDER(Performed 11/10/2012) * IMAGING/RADIOLOGY/XRAY RESULTS ORDER(Performed 11/10/2012) Results * XR CERVICAL SPINE 2 OR 3 VW (07/30/2013 12:12 PM CDT) Anatomical Region Laterality Modality Spine Radiographic Elsa ging 07/30/2013 2:21 PM CDT Impressions 07/30/2013 2:50 PM CDT Anterior fusion of C5-C6 as described. Edited by Anjali Sheppard on 07/30/2013 2:25 PM Narrative 07/30/2013 2:50 PM CDT CERVICAL SPINE, THREE VIEWS INDICATION: Neck pain and cervical spine pain FINDINGS: AP, lateral, and open-mouth odontoid views of the cervical spine compared to a single view from December 24, 2012 show anterior fusion with metallic plate and screws at C5-C6 with intervertebral disc space device. There is loss of normal cervical lordosis with endplate degenerative changes of C3 and C4. There is no acute fracture or subluxation. Procedure Note Josh Bobo MD - 07/30/2013 CERVICAL SPINE, THREE VIEWS INDICATION: Neck pain and cervical spine pain FINDINGS: AP, lateral, and open-mouth odontoid views of the cervical spine compared to a single view from December 24, 2012 show anterior fusion with metallic plate and screws at C5-C6 with intervertebral disc space device. There is loss of normal cervical lordosis with endplate degenerative changes of C3 and C4. There is no acute fracture or subluxation. IMPRESSION Anterior fusion of C5-C6 as described. Edited by Anjali Sheppard on 07/30/2013 2:25 PM Von Fuchs MD DIAGNOSTIC IMAGING O RDERABLES * XR CERV SPINE SINGLE VIEW IN PACU (12/24/2012 1:51 PM LAST CODE STRIPER) Only the most recent of4 resultswithin the time period is included. Anatomical Region Laterality Modality Spine Radiographic Elsa ging 12/24/2012 2:00 PM LAST CODE STRIPER Narrative 12/24/2012 2:17 PM LAST CODE STRIPER CERVICAL SPINE - SINGLE VIEW INDICATION: Neck pain, post fusion FINDINGS: AP radiograph of the cervical spine demonstrates an anterior cervical fusion plate at C5-C6. Alignment of the cervical spine appears normal on this AP radiograph. Plate appears to be in satisfactory position. Procedure Note Genie Marroquin MD - 12/24/2012 CERVICAL SPINE - SINGLE VIEW INDICATION: Neck pain, post fusion FINDINGS: AP radiograph of the cervical spine demonstrates an anterior cervical fusion plate at C5-C6. Alignment of the cervical spine appears normal on this AP radiograph. Plate appears to be in satisfactory position. Von Fuchs MD DIAGNOSTIC IMAGING O RDERABLES * HCG URINE QUALITATIVE - POINT OF CARE (IP) (12/24/2012 9:03 AM LAST CODE STRIPER) HCG Qual Urine neg Negative [facility] QC Verified yes Yes [facility] POC T TESTING Urine specimen (specimen) URINE / Unknown 12/24/2012 9:03 AM LAST CODE STRIPER Baron Wilkins MD LAB - POINT OF CARE ORDERABLES Performing Organization Address [facility] Co de Phone Number [facility] [id number] [place] [address] * TYPE + SCREEN PANEL (12/15/2012 3:50 PM LAST CODE STRIPER) Pathologist [facility] ABO Rh A Pos [facility] Antibody Screen Neg Negative [facility] Miscellaneous samples (specimen) BLOOD SPECIMEN / Unknown 12/15/2012 3:50 PM LAST CODE STRIPER 12/15/2012 3:50 PM LAST CODE STRIPER Von Fuchs MD LAB - BLOOD BANK ORD ERABLES Performing Organization Address [facility] de Phone Number [facility] [address] [place] [address] * HGB HCT PANEL (12/15/2012 3:50 PM LAST CODE STRIPER) Pathologist [facility] Hemoglobin 12.8 12.0 - 15.6 gm/dL [facility] Hematocrit 38.4 35.9 - 45.5 % [facility] Blood specimen (specimen) BLOOD SPECIMEN / Unknown 12/15/2012 3:50 PM LAST CODE STRIPER 12/15/2012 3:50 PM LAST CODE STRIPER Von Fuchs MD LAB - HEMATOLOGY ORD ERABLES Performing Organization Address [facility] Co de Phone Number [facility] [address] [place] [address] * (ABNORMAL) URINALYSIS ROUTINE W/REFLEX TO CULTURE (12/15/2012 3:49 PM LAST CODE STRIPER) Color UA YELLOW [facility] Character UA CLOUDY [facility] Specific Gordon UA 1.029 1.003 - 1.030 [facility] pH UA 6.0 5.0 - 8.0 pH Units [facility] Leukocyte UA 1+(H) Negative /ul [facility] Nitrite UA NEGATIVE Negative [facility] Protein UA NEGATIVE Negative mg/dL [facility] Glucose UA NEGATIVE Negative mg/dL [facility] Ketone UA TRACE(H) Negative mg/dL [facility] Urobilinogen UA 0.2 0.1 - 1.0 Timothy Units [facility] Bilirubin UA NEGATIVE Negative mg/dL [facility] Blood UA 1+(H) Negative /ul [facility] WBC UA 10-20(H) 0 - 5 /HPF [facility] RBC UA 5-10(H) 0 - 5 /HPF [facility] Epithelial Cell UA 5-10(H) 0 - 5 /HPF [facility] Casts UA 0-2 None Seen /LPF [facility] Bacteria UA 1+(H) None Seen [facility] Urine Culture Reflexed to culture [facility] Urine specimen (specimen) URINE SPECIMEN OBTAINED BY CLEAN CATCH PROCEDURE / Unknown 12/15/2012 3:49 PM LAST CODE STRIPER 12/15/2012 3:49 PM LAST CODE STRIPER Von Fuchs MD LAB - URINALYSIS ORD ERABLES Performing Organization Address [facility] de Phone Number [facility] [id number] [place] [id number] * CULTURE URINE (12/15/2012 3:49 PM LAST CODE STRIPER) Result [facility] Comment: Final CULTURE >100,000 CFU/mL urogenital/skin yared URINE SPECIMEN OBTAINED BY CLEAN CATCH PROCEDURE / Unknown 12/15/2012 3:49 PM LAST CODE STRIPER 12/15/2012 4:03 PM LAST CODE STRIPER Narrative [facility] - 12/17/2012 10:18 AM LAST CODE STRIPER Performed By [facility];[address] [place] [address];[place] [address] Von Fuchs MD LAB - MICROBIOLOGY O RDERABLES Performing Organization Address [facility] Co de Phone Number [facility] [address] [place] [address] * EKG 12-LEAD (12/15/2012 3:24 PM LAST CODE STRIPER) Ventricular Rate 70 BPM [facility] Atrial Rate 70 BPM [facility] P-R Interval 182 ms [facility] QRS Duration ms 74 ms [facility] Q-T Interval ms 366 ms [facility] QTC Calculation (Bezet) 395 ms [facility] Calculated P Grayson 50 degrees [facility] Calculated R Grayson 28 degrees [facility] Calculated T Grayson 13 degrees [facility] Interpretation EKG Normal sinus rhythm Normal ECG No previous ECGs available Confirmed by TYRELL CAMARGO MD ([id number]) on 12/16/2012 12:29:10 PM [facility] 12/15/2012 3:24 PM LAST CODE STRIPER 12/16/2012 12:29 PM LAST CODE STRIPER Narrative [facility] - 12/16/2012 12:30 PM LAST CODE STRIPER Procedure Note Document, Scanned - 12/16/2012 7:22 AM CST Transcriptions Document, Scanned - 12/16/2012 12:30 PM CST Von Fuchs MD ECG ORDERABLES [facility] * IMAGING/RADIOLOGY/XRAY RESULTS ORDER (11/10/2012) Only the most recent of2 resultswithin the time period is included. Anatomical Region Laterality Modality Other Provider Unknown IMAGING
--- OUTSIDE RECORDS SUMMARY | 2024-12-25 13:42 | XMS_ITS | Encounter Summary ---
Author Organization [facility] Address [address] [place] [address] Phone Care Team Providers Care Faith Healer Name Role Phone Cheo David DO Unavailable [phone] Susanna Hickman PHARMACIST TECHNICIAN, INDUSTRIAL RELATIONS REPRESENTATIVE Unavailable Angela Stafford PHARMACIST TECHNICIAN, INDUSTRIAL RELATIONS REPRESENTATIVE Unavailable Gracy Griffith MD Unavailable Chary Ferris PAC Primary Care Provider + Cameron Camacho MD Unavailable Sharon Tai MD Unavailable [phone] Gail Morales APRN, INDUSTRIAL RELATIONS REPRESENTATIVE Unavailable Reason for Visit * Reason Comments Medication Refill Encounter Details Date Type Department Care Team (Late st Contact Info) Description 12/06/2020 Refill [facility] - G[facility]enterology - [place] [address] [place] [address] Suzie Hearn PAC [address] [place] [address] Medication Refill Social History Tobacco Use Types Packs/Day Years Used Date Smoking Tobacco: Never Smokeless Tobacco: Never Alcohol Use Standard Drinks/Week Comments Yes 0 (1 standard drink = 0.6 oz pur e alcohol) seldom maybe one drink a month PHQ-2 Answer Date Recorded PHQ-2 Score 0 07/07/2019 Education Answer Date Recorded What is the highest level of school you have completed or the highest degree you have received? Master's degree (e.g., MA, MS, Shay, MEd, BATCH OR CONTINUOUS STILL OPERATOR, SYED) 11/29/2020 Comments No Sex and Gender Information Value Date Recorded Sex Assigned at Not on file Legal Sex Female 10:48 PM CDT Gender Identity Not on file Sexual Orientation Not on file Occupation Industry Job Start Date Job End Date [employer] Not on file Not on file Not on file COVID-19 Exposure Response Date Recorded In the last month, have you been in contact with someone who was confirmed or suspected to have Coronavirus / COVID-19? No / Unsure 11/29/2020 9:25 AM ROUTEMAN documented as of this encounter Miscellaneous Notes * Telephone Encounter - Zeeshan Torres CMA - 12/07/2020 9:02 AM ROUTEMAN Pharmacy requesting refill of: Requested Prescriptions Pending Prescriptions Disp Refills ??? Viberzi 100 MG Tablet [Pharmacy Med Name: VIBERZI 100 MG TABLET] 180 Tab Sig: TAKE 1 TABLET BY MOUTH BY MOUTH TWICE A DAY Last fill: 11/10/2020 Patients last OV with GI: 05/04/2020 Next Office Visit with GI: 1 yr recall placed for follow up appointment in May 2021 EMAN documented in this encounter Plan of Treatment Upcoming Encounters Date Type Department Care Team (Late st Contact Info) Description 03/16/2025 11:30 AM CDT Office Visit [facility] - [facility]ocr[facility] - [place] [address] [place] [id number] Cameron Camacho MD [id number] [address] 04/05/2025 2:00 PM CDT Office Visit [facility] - Gastroenterology [facility] [address] [place] [address] Gail Morales APRN, INDUSTRIAL RELATIONS REPRESENTATIVE [address] [place] [address] 05/26/2025 11:15 AM CDT Office Visit [facility] Family Medicine [facility] [address] [place] [address] Chary Ferris, PAC [address] [place] [address] documented as of this encounter Visit Diagnoses Not on filedocumented in this encounter Additional Health Concerns Infection Onset Date Last Indicated Resolved Time COVID - 19 11/08/2021 11/09/2021 11/28/2021 12:1 6 AM ROUTEMAN Assessment Noted Time PHQ-9 Depression Total Score: 0 10/29/20 10:57 AM ROUTEMAN documented as of this encounter Care Teams Faith Healer Relationship Specialty Start Date End Date Chary Ferris PAC [address] [place] [address] PCP - General Physician [employer] Programmer 11/17/17 Cheo David DO Gastroenterology 05/09/16 Susanna Hickman APRN, INDUSTRIAL RELATIONS REPRESENTATIVE Nurse Practitioner Advanced Practice Nurse 05/09/16 Angela Stafford APRN, INDUSTRIAL RELATIONS REPRESENTATIVE Nurse Practitioner Advanced Practice Nurse 05/09/16 Gracy Griffith MD [address] [place] [address] Family Medicine 04/03/17 Cameron Camacho MD [address] [address] Consulting Physician Endocrinology 12/15/23 Sharon Tai MD [address] [place] [address] Consulting Physician Gastroenterology 12/05/22 Gail Morales APRN, INDUSTRIAL RELATIONS REPRESENTATIVE [address] [place] [address] Nurse Practitioner Advanced Practice Nurse 10/06/24 documented as of this encounter
--- OUTSIDE RECORDS SUMMARY | 2024-12-25 13:42 | XMS_ITS | Clinical Summary ---
Author Organization [facility] Address [address] [place] [address] Phone Care Team Providers Care Upper Trimmer Name Role Phone Cheo David DO Unavailable [phone] Susanna Hickman LINE APPLIANCE ASSEMBLER, BELLOWS FILLER Unavailable [phone] Angela Stafford LINE APPLIANCE ASSEMBLER, BELLOWS FILLER Unavailable Gracy Griffith MD Unavailable [phone] Chary Ferris Primary Care Provider + Cameron Camacho MD Unavailable Sharon Tai MD Unavailable [phone] Gail Morales LINE APPLIANCE ASSEMBLER, BELLOWS FILLER Unavailable Allergies Active Allergy Reactions Criticality Noted Date Comments Adhesive Tape Rash 04/09/2016 Diclofenac Unknown 10/05/2024 Diclofenac Sodium Vomiting Low 10/20/2023 Diclofenac Sodium Topical Gell 1% Morphine Hives,Rash Esomeprazole Diarrhea,Nausea,Vomi ti ng Medium Omeprazole Diarrhea,Nausea,Vomi ti ng,Other (see Comments) Medium Causing diarrhea Pantoprazole Sodium Diarrhea,Nausea,Vomi ti ng Medium Tramadol Hives,Rash NIGHT[place]-STARTL ED AND BIT HER TONGUE Acetaminophen Hives,Rash Hydrocodone-Acetaminoph en Hives,Rash Cetirizine Hcl Palpitations Medications Byron-3 Fatty Acids (FISH OIL PO) Take 1 Tablet by mouth daily. Reported on 04/03/2017 Active Ferrous Sulfate Dried 45 MG Tablet Controlled Release Take 1 Tablet by mouth daily. Active Probiotic Product (PROBIOTIC DAILY PO) Take by mouth. Activ e Inulin (FIBER CHOICE PO) Take by mouth daily. Active Multiple Vitamin (MULTI-VITAMIN PO) Take by mouth daily. Active albuterol 108 (90 Base) MCG/ACT Aerosol Solution take 2 Puffs by inhalation every 6 hours as needed for Wheezing. 8.5 g 1 09/11/20 22 Active cyclobenzaprin e (FLEXERIL) 5 MG Tablet TAKE 2 TABLETS BY MOUTH EVERY DAY NEEDED 03/06/20 23 Active Loratadine (CLARITIN PO) Take by mouth. A ctive Viberzi 100 MG TabletIndicati ons:Irritable bowel syndrome with diarrhea TAKE 1 TABLET BY MOUTH TWICE A DAY 60 Tablet 03/01/20 24 Active naproxen (NAPROSYN) 500 MG Tablet Take 1 Tablet by mouth 2 times daily as needed for Mild or more severe pain. 20 Tablet 06/01/20 24 Active Breo Ellipta 100-25 MCG/ACT AEROSOL POWDER, BREATH ACTIVATED INHALE 1 PUFF BY MOUTH EVERY DAY 60 Each 5 09/03/20 24 Active ondansetron (ZOFRAN-ODT) 4 MG TABLET DISPERSIBLE Take 1 Tablet by mouth every 8 hours as needed for Nausea - 1st line. 20 Tablet 10/05/20 24 Active Estradiol (Yuvafem) 10 MCG Tablet INSERT 1 TABLET TWICE A WEEK BY VAGINAL ROUTE, FOR MAINTENANCE DOSING. Active methotrexate 2.5 MG Tablet TAKE 4 TABLETS BY MOUTH EVERY 7 DAYS. 09/26/20 24 Active semaglutide, 1 MG/DOSE, (OZEMPIC) 2 MG/1.5ML Solution Pen-injector 1 mg by Subcutaneous route once a week. Active Dexlansoprazol e (Dexilant) 30 MG CAPSULE DELAYED RELEASEIndicat ions:Gastroeso phageal reflux disease with esophagitis without hemorrhage Take 30 mg by mouth daily. 90 Capsule 3 10/05/20 24 Active Additional Information Patient taking differently: 60 mgOral DAILY, Reported on 11/26/2024 atenolol (TENORMIN) 25 MG Tablet TAKE 1 TABLET BY MOUTH EVERY DAY 90 Tablet 1 10/11/20 24 Active DULoxetine (CYMBALTA) [address] Particles Take 1 Capsule by mouth daily. 90 Capsule 3 10/28/20 24 Active pregabalin (LYRICA) 150 MG CapsuleIndicat ions:Fibromyal terrance Take 1 Capsule by mouth 2 times daily. 180 Capsule 11/05/19 25 Active famotidine (PEPCID) 20 MG Tablet Take 1 Tablet by mouth 2 times daily. 180 Tablet 3 11/04/19 25 Active cevimeline (EVOXAC) 30 MG Capsule TAKE 1 CAPSULE BY MOUTH THREE TIMES A DAY 270 Capsule 1 12/13/19 25 Active tirzepatide-we ight management (Zepbound) 2.5 MG/0.5ML Solution Auto-injector 2.5 mg by Subcutaneous route once a week. 2 mL 12/22/19 24 2024 Discontinued(M ed List Clean Up) methylPREDNISo lone (MEDROL DOSPACK) 4 MG Tablet Therapy Pack Use as per instructions on package. 21 Tablet 06/11/20 24 2024 Discontinued(M ed List Clean Up) cevimeline (EVOXAC) 30 MG Capsule Take 1 Capsule by mouth 3 times daily. 270 Capsule 1 06/14/20 24 2024 Discontinued Dexlansoprazol e 60 MG CAPSULE DELAYED RELEASEIndicat ions:Gastroeso phageal reflux disease with esophagitis, unspecified whether hemorrhage Take 60 mg by mouth daily for 30 days. 90 Capsule 3 11/09/19 25 2024 Active Problems Problem Noted Date Diagnosed Date Arthritis of right knee 06/12/2024 Autoimmune disorder 06/11/2024 Irritable bowel syndrome with diarrhea 0 Gastroesophageal reflux disease with esophagitis 05/04/2020 Fibromyalgia 11/06/2018 Elevated glucose 11/06/2018 Dyslipidemia 11/06/2018 ANA (obstructive sleep apnea) 01/20/2018 Class 2 severe obesity due t o excess calories with serious comorbidity and body mass index (BMI) of 37.0 to 37.9 in adult 10/29/2017 Shortness of breath 09/05/2017 Tinnitus of right ear 03/25/2017 Referred otalgia 03/25/2017 TMJ (temporomandibular joint syndrome) 7 Acquired stenosis of external ear canal 03/25/20 17 Thyroid nodule Overview (08/07/2015): Diffuse, solitary Nasal polyps Overview (08/07/2015): Which is improving Allergic rhinitis Overview (08/07/2015): Needs RX for breakthrough Sms Chronic rhinitis Overview (08/07/2015): PNAR Chronic laryngitis Overview (08/07/2015): Improved on Dexilant Resolved Problems Problem Noted Date Diagnosed Date Resolved Date Dysphagia, pharyngoesophageal phase 06/04/2016 Overview (08/07/2015): Alleviated w/ Dexilant Acute tracheobronchitis 03/04 Overview (08/07/2015): infective Encounters Date Type Department Care Team Description 12/11/2024 Refill [facility] [address] [place] [address] Chary Ferris PAC Medication Refill 11/26/2024 3:00 PM CLOSED CIRCUIT SCREEN WATCHER Office Visit [facility] [address] [place] [address] Chary Ferris PAC Fibromyalgia (Primary Dx); Gastroesophageal reflux disease, unspecified whether esophagitis present Discharge Disposition: Discharged to home or Selfcare 11/24/2024 Travel 11/16/2024 Telephone [facility] [address] [place] [address] Chary Ferris PAC Advice Only 11/08/2024 Refill [facility] Gastroenter[facility] [address] [place] [address] Gail Morales LINE APPLIANCE ASSEMBLER, BELLOWS FILLER 11/02/2024 MyChart RX Renewal [facility] [address] [place] [address] Suzie Hearn, SHAYLA Medication Renewal Reviewed 11/02/2024 MyChart RX Renewal [facility] [address] [place] [address] Chary Ferris PAC Medication Renewal Reviewed 10/10/2024 Travel 10/09/2024 [facility] [place] [address] Chary Ferris PAC Medication Refill 10/05/2024 1:30 PM CLOSED CIRCUIT SCREEN WATCHER Office Visit [facility] Gastroenterology [facility] [address] [place] [address] Gail Morales APRN, LU Gastroesophageal reflux disease with esophagitis without hemorrhage (Primary Dx); Irritable bowel syndrome with diarrhea; Drug-induced weight loss Discharge Disposition: Discharged to home or Selfcare 10/05/2024 MyChart RX Renewal [facility] [address] [place] [address] Chary Ferris PAC Medication Renewal Reviewed 10/03/2024 Travel from Last 3 Months Immunizations Immunization Administration Dates Next Due Covid-19, Mrna, Lnp-s, Pf, 3 0 Mcg/0.3 Ml Dose (Pfizer) 07/22/2022,08/24/2021,12/28/2020,2020 Hepatitis A Vaccine 01/10/2009 Hepatitis B Vaccine 07/04/2009,02/01/2009,2008 Influenza Vaccine 07/27/2019,08/20/2018 Influenza Vaccine greater than 3 yrs 08/06/2024, 08/03/2015,11/03/2006 Influenza Vaccine, MDCK,quad rivalent, pres free 07/27/2019,08/17/2017 Influenza Vaccine, Quadrivalent, PF /07/2023,08/08/2022,08/07/2021,2017,08/18/2017 Influenza, Injectable, Mdck,quadrivalent,with Preservative 08/15/2020 Influenza, Seasonal, Injecta ble, Undefined 08/03/2015,11/03/2006 Pneumococcal Vaccine Adult - 23 Valent 10/03/2006 TDAP Vaccine 11/03/2018,10/03/2006 Typhoid Vaccine 03/03/2012 Zoster Vaccine Recombinant 11/04/2019,07/27/2019 Family History Medical History Relation Name Comments Cancer Father Araceli Daniel in 2020 fr om non-Hodgkin s Lymphoma Diabetes Father Araceli Daniel Type 2 Hypertension Father Araceli Daniel Migraines Father Araceli Daniel Cancer Maternal Aunt [place] [employer] Colon Cancer Colon Cancer Maternal Grandfather Cervical Cancer Maternal Grandmother Colon Polyps Mother Joelle Valerio Hypertension Mother Joelle Valerio Migraines Mother Joelle Valerio Osteoarthritis Mother Joelle Valerio Thumbs Cancer Paternal Grandfather [facility] Colon c ancer Migraines Sister Keeley Jordan Relation Name Status Comments Father Araceli Daniel Maternal Aunt [place] [employer] Maternal Grandfather Maternal Grandmother Mother Joelle Valerio Alive Paternal Grandfather Meredith Chazy Sister Keeley Jordan Social History Tobacco Use Types Packs/Day Years Used Date Smoking Tobacco: Never Smokeless Tobacco: Never Tobacco Cessation:Counseling Given: Yes Comments:Second hand smoke as a child Alcohol Use Standard Drinks/Week Comments Yes 0 (1 standard drink = 0.6 oz pur e alcohol) seldom maybe one drink a month Tipping Bucketities Answer Date Recorded In the past 12 months has [employer], gas, oil, or water [employer] threatened to shut off services in your home? No 11/24/2024 Social Connection and Isolat ion Panel [NHANES] Answer Date Recorded In a typical week, how many times do you talk on the phone with family, friends, or neighbors? More than three times a week 11/24/2024 How often do you get togethe r with friends or relatives? Three times a week 11/24/2024 How often do you attend chur ch or mandaeism services? Never 11/24/2024 Do you belong to any clubs o r organizations such as adventist groups, unions, fraternal or athletic groups, or school groups? Yes 11/24/2024 How often do you attend meet ings of the clubs or organizations you belong to? 1 to 4 times per year 11/24/2024 Are you , , di vorced, , never , or living with a partner? 11/24/2024 AUDIT-C Answer Date Recorded Q1: How often do you have a drink containing alc ohol? Monthly or less 11/24/2024 Q2: How many drinks containi ng alcohol do you have on a typical day when you are drinking? 1 or 2 11/24/2024 Q3: How often do you have si x or more drinks on one occasion? Never 11/24/2024 Overall Financial Resource Strain (CARDIA) Answe r Date Recorded How hard is it for you to pa y for the very basics like food, housing, medical care, and heating? Not hard at all 11/24/2024 PHQ-2 Answer Date Recorded Total Score - Questions 1-9 0 11/04 [facility] - Occupational Stress Questionnaire Answer Date Recorded Do you feel stress - tense, restless, nervous, or anxious, or unable to sleep at night because your mind is troubled all the time - these days? Only a little 11/24/2024 Exercise Vital Sign Answer Date Recorde d On average, how many days pe r week do you engage in moderate to strenuous exercise (like a brisk walk)? 2 days 11/24/2024 On average, how many minutes do you engage in exercise at this level? 30 min 11/24/2024 Hunger Vital Sign Answer Date Recorded Within the past 12 months, y ou worried that your food would run out before you got the money to buy more. Never true 11/24/19 25 Within the past 12 months, t he food you bought just didn't last and you didn't have money to get more. Never true 11/24/2024 PRAPARE - Transportation Answer Date Re corded In the past 12 months, has l ack of transportation kept you from medical appointments or from getting medications? No 11/04 In the past 12 months, has l ack of transportation kept you from meetings, work, or from getting things needed for daily living? No 11/24/2024 Housing Stability Vital Sign Answer Jason e Recorded In the last 12 months, was t here a time when you were not able to pay the mortgage or rent on time? No 11/24/2024 In the past 12 months, how m any times have you moved where you were living? 0 11/24/2024 At any time in the past 12 m [facility], were you homeless or living in a senior living (including now)? No 11/24/2024 Education Answer Date Recorded What is the highest level of school you have completed or the highest degree you have received? 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 Not on file Not on file Last Filed Vital Signs Vital Sign Reading Time Taken Comments Blood Pressure 122/76 11/26/2024 2:51 PM CLOSED CIRCUIT SCREEN WATCHER Pulse 76 11/26/2024 2:51 PM CLOSED CIRCUIT SCREEN WATCHER Temperature 36 C (96.8 F) 11/26/2024 2:51 PM CLOSED CIRCUIT SCREEN WATCHER Respiratory Rate 12 11/26/2024 2:51 PM CLOSED CIRCUIT SCREEN WATCHER Oxygen Saturation 98% 11/26/2024 2:51 PM CLOSED CIRCUIT SCREEN WATCHER Inhaled Oxygen Concentration - - Weight 87.5 kg (193 lb) 11/26/2024 2:51 PM CLOSED CIRCUIT SCREEN WATCHER Height 170.2 cm (5' 7 ) 11/26/2024 2:51 PM CLOSED CIRCUIT SCREEN WATCHER Body Mass Index 30.23 11/26/2024 2:51 PM CLOSED CIRCUIT SCREEN WATCHER Plan of Treatment Upcoming Encounters Date Type Department Care Team (Late st Contact Info) Description 03/16/2025 11:30 AM CDT Office Visit [facility] - [place] [address] [place] [address] Cameron Camacho MD [address] [facility] [address] [place] [address] 04/05/2025 2:00 PM CDT [facility] [place] [address] [place] [id number] Gail Morales APRN, BELLOWS FILLER [address] [place] [address] 05/26/2025 11:15 AM CDT Office Visit [facility] [address] [place] [address] Chary Ferris, PAC [address] [place] [address] Health Maintenance Due Date Last Done Comments Hepatitis C Virus (HCV) Screening 1967 Cologuard 2017 Immunochemical Fecal Occult Blood 2017 Pneumococcal Immunization (50+ years) (2 of 2 - PCV) 2017 10/03/2006 Pap Smear 07/05/2023 07/05/2020, 07/23/2017 Mammogram 11/27/2024 11/27/2023, 10/03, 10/17/2022, Additional history exists SARS-COV-2 Immunization (8 - Pfizer risk season) 2025 07/09/2024, 08/15/2023, 07/22/2022, Additional history exists Cervical Cancer Screening (CCS) 04/09/2028 HPV/Cotest 04/09/2028 04/09/2023 Colonoscopy 10/24/2028 10/24/2021, 10/05, 10/21/2016 Colorectal Cancer Screening 10/24/2028 Td Immunization Every 10 Years (Adults With 1 Tdap) 11/03/2028 11/03/2018, 10/03/2006 Respiratory Syncytial Virus (RSV) Immunization (Adult) (1 - 1-dose 75+ series) 2042 10/24/2021, 10/05, 10/21/2016 Pneumococcal Immunization Combined Discontinued 10/03/2006 Hepatitis B Immunization Completed 009, 02/01/2009, 01/01/2009 Zoster Immunization Completed 11/04/2019, 9 Influenza Immunization Completed 4, 08/11/2023, 08/08/2022, Additional history exists Meningococcal Immunization (ACWY) Aged Out No longer eligible based on patient's age to complete this topic Rotavirus Immunization Aged Out No lo nger eligible based on patient's age to complete this topic Procedures Procedure Name Priority Date/Time Associated Diagnosis Comments MAMMOGRAM BILATERAL GENERIC 10/17/2022 12:00 AM CLOSED CIRCUIT SCREEN WATCHER PATHOLOGY CYTOLOGY SOCIAL MEDIA MANAGER Routine 07/23/2017 from Last 3 Months or Most Recently Relevant to Health Maintenance Results * MAMMOGRAM BILATERAL MISCELLANEOUS (10/17/2022 12:00 AM CLOSED CIRCUIT SCREEN WATCHER) 10/17/2022 us Not On File Provider IMG MAMMO ORDERABLES Final Result SCAN * PATHOLOGY CYTOLOGY SOCIAL MEDIA MANAGER (07/23/2017) Specimen of unknown material (specimen) us Renetta Jensen PAC PATHOLOGY/CYTOLOGY ORDERABL ES Final Result from Last 3 Months or Most Recently Relevant to Health Maintenance Insurance [facility] Care Teams Upper Trimmer Relationship Specialty Start Date End Date Chary Ferris PAC [address] [facility] [place] [address] PCP - General Physician Educational Recruiter 11/17/17 Cheo David DO Gastroenterology 05/09/16 Susanna Hickman, LINE APPLIANCE ASSEMBLER, BELLOWS FILLER Nurse Practitioner Advanced Practice Nurse 05/09/16 Angela Stafford, PRISCA, BELLOWS FILLER Nurse Practitioner Advanced Practice Nurse 05/09/16 Gracy Griffith MD [address] [place] [address] Family Medicine 04/03/17 Cameron Camacho MD [address] [address] Consulting Physician Endocrinology 12/15/23 Sharon Tai MD [address] [place] [address] Consulting Physician Gastroenterology 12/05/22 Gail Morales APRN, BELLOWS FILLER [address] [place] [address] Nurse Practitioner Advanced Practice Nurse 10/06/24
--- OUTSIDE RECORDS SUMMARY | 2024-12-25 13:42 | XMS_ITS | Encounter Summary ---
Author Organization [facility] Address [address] [place] [address] Phone Care Team Providers Care Insurance Auditor Name Role Phone Cheo David DO Unavailable [phone] Susanna Hickman COMPLIANCE INTERN, REPRODUCTIVE ENDOCRINOLOGIST Unavailable Angela Stafford COMPLIANCE INTERN, REPRODUCTIVE ENDOCRINOLOGIST Unavailable Gracy Griffith MD Unavailable Chary Ferris PAC Primary Care Provider + Cameron Camacho MD Unavailable Sharon Tai MD Unavailable [phone] Gail Morales APRN, REPRODUCTIVE ENDOCRINOLOGIST Unavailable Reason for Visit * Reason Comments Medication Refill Encounter Details Date Type Department Care Team (Late st Contact Info) Description 07/21/2022 Refill [facility] [place] [address] [place] [address] Suzie Hearn PAC [address] [place] [address] Medication Refill Social History Tobacco Use Types Packs/Day Years Used Date Smoking Tobacco: Never Smokeless Tobacco: Never Alcohol Use Standard Drinks/Week Comments Yes 0 (1 standard drink = 0.6 oz pur e alcohol) seldom maybe one drink a month PHQ-2 Answer Date Recorded Total Score - Questions 1-9 0 05/04 Education Answer Date Recorded What is the highest level of school you have completed or the highest degree you have received? 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 Viberzi 100 MG Tablet [Pharmacy Med Name: VIBERZI 100 MG TABLET] 180 Tablet Sig: TAKE 1 TABLET BY MOUTH TWICE DAILY Last fill: 12/31/2021 Patients last OV with GI: 07/10/2021 Next Office Visit with GI: None scheduled. Recall letter noted to be sent for 1 year follow up. Medication cannot be delegated. Viberzi order pended, please review. documented in this encounter Plan of Treatment Upcoming Encounters Date Type Department Care Team (Late st Contact Info) Description 03/16/2025 11:30 AM CDT [facility] [place] [address] [place] [phone] Cameron Camacho MD #[address] [address] 04/05/2025 2:00 PM CDT [facility] Visit [facility] [place] [address] [place] [address] Gail Morales APRN, REPRODUCTIVE ENDOCRINOLOGIST #[address] [place] [address] 05/26/2025 11:15 AM CDT [facility] Visit [facility] [address] [place] [address] Chary Ferris, PAC [address] [place] [address] documented as of this encounter Visit Diagnoses Diagnosis Irritable bowel syndrome with diarrhea Irritable bowel syndrome documented in this encounter Additional Health Concerns Assessment Noted Time PHQ-9 Depression Total Score: 0 02/16/20 21 2:00 PM CDT documented as of this encounter Care Teams Insurance Auditor Relationship Specialty Start Date End Date Chary Ferris PAC [address] [place] [address] PCP - General Physician Java Designer 11/17/17 Cheo David DO Gastroenterology 05/09/16 Susanna Hickman APRN, REPRODUCTIVE ENDOCRINOLOGIST Nurse Practitioner Advanced Practice Nurse 05/09/16 Angela Stafford APRN, REPRODUCTIVE ENDOCRINOLOGIST Nurse Practitioner Advanced Practice Nurse 05/09/16 Gracy Griffith MD [address] [place] [address] Family Medicine 04/03/17 Cameron Camacho MD #[address] [address] Consulting Physician Endocrinology 12/15/23 Sharon Tai MD #[address] [place] [address] Consulting Physician Gastroenterology 12/05/22 Gail Morales APRN, REPRODUCTIVE ENDOCRINOLOGIST [address] [place] [address] Nurse Practitioner Advanced Practice Nurse 10/06/24 documented as of this encounter
--- OUTSIDE RECORDS SUMMARY | 2024-12-25 13:42 | XMS_ITS | Encounter Summary ---
Author Organization [facility] Address [address] [place] [address] Phone Care Team Providers Care Fiber Drier Operator Name Role Phone Cheo David DO Unavailable [phone] Susanna Hickman TOMOGRAPHY TECHNOLOGIST, DIRECTOR OF TECHNOLOGY Unavailable [phone] Angela Stafford TOMOGRAPHY TECHNOLOGIST, DIRECTOR OF TECHNOLOGY Unavailable Gracy Griffith MD Unavailable Chary Ferris Primary Care Provider + Cameron Camacho MD Unavailable Sharon Tai MD Unavailable [phone] Gail Morales APRN, DIRECTOR OF TECHNOLOGY Unavailable Reason for Visit * Reason Comments Medication Refill Encounter Details Date Type Department Care Team (Late st Contact Info) Description 11/20/2021 Refill [facility] - [facility] Medicine - [place] [address]2 [place] [phone] Chary Ferris PAC [address] [place] [address] Medication Refill Social History Tobacco Use Types [...] have received? 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 No / Unsure 11/08/2021 11:22 AM MANAGER PRODUCT documented as of this encounter Miscellaneous Notes * Telephone Encounter - Callie Tan RN - 11/20/2021 9:36 AM CST Medication failed the protocol, provider to review and approve the medication order if appropriate. Requested Prescriptions Pending Prescriptions Disp Refills pregabalin (LYRICA) 150 MG Capsule [Pharmacy Med Name: PREGABALIN 150 MG CAPSULE] 180 Capsule 0 Sig: TAKE 1 CAPSULE BY MOUTH TWICE A DAY Not Delegated - Anticonvulsants Excluding Benzodiazepines Protocol Failed - 11/20/2021 6:17 AM Failed - This refill cannot be delegated Passed - Visit with relevant provider in past 12 months or upcoming 90 days Recent Visits Date Type Provider Dept 11/08/21 Telemedicine Chary Ferris PAC [facility] 10/17/21 Office Visit Chary Ferris PAC [facility] 02/15/21 Office Visit Chary Ferris PAC [facility] 11/30/20 Telemedicine Chary Ferris PAC [facility] Showing recent visits within past 365 days and meeting all other requirements Future Appointments No visits were found meeting these conditions. Showing future appointments within next 90 days and meeting all other requirements GER PRODUCT documented in this encounter Plan of Treatment Upcoming Encounters Date Type Department Care Team (Late st Contact Info) Description 03/16/2025 11:30 AM CDT Office Visit [facility] Medical [facility] - Endocrinology - [place] #2 [facility] [place] [address] Cameron Camacho MD [address] [address] 04/05/2025 2:00 PM CDT Office Visit [facility] - Gastroenterology - [place] #2 [facility] [place] [address] Gail Morales APRN, DIRECTOR OF TECHNOLOGY [address] [place] [address] 05/26/2025 11:15 AM CDT Office Visit [facility] - Family Medicine - [place] [address] [place] [address] Chary Ferris PAC [address] [place] [address] documented as of this encounter Visit Diagnoses Diagnosis Fibromyalgia Mylagia and myositis, unspecified documented in this encounter Additional Health Concerns Infection Onset Date Last Indicated Resolved Time COVID - 19 11/08/2021 11/09/2021 11/28/2021 12:1 6 AM MANAGER PRODUCT Assessment Noted Time PHQ-9 Depression Total Score: 0 02/16/20 21 2:00 PM CDT documented as of this encounter Care Teams Fiber Drier Operator Relationship Specialty Start Date End Date Chary Ferris PAC [address] [place] [address] PCP - General Physician M48/M60 Tank Driver 11/17/17 Cheo David DO Gastroenterology 05/09/16 Susanna Hickman APRN, DIRECTOR OF TECHNOLOGY Nurse Practitioner Advanced Practice Nurse 05/09/16 Angela Stafford APRN, DIRECTOR OF TECHNOLOGY Nurse Practitioner Advanced Practice Nurse 05/09/16 Gracy Griffith MD [address] [place] [address] Family Medicine 04/03/17 Cameron Camacho MD #[address] [phone] Consulting Physician Endocrinology 12/15/23 Sharon Tai MD #2 [place] [address] Consulting Physician Gastroenterology 12/05/22 Gail Morales APRN, DIRECTOR OF TECHNOLOGY [address] [place] [address] Nurse Practitioner Advanced Practice Nurse 10/06/24 documented as of this encounter
--- OUTSIDE RECORDS SUMMARY | 2024-12-25 13:42 | XMS_ITS | Encounter Summary ---
Author Organization [facility] Address [address] [place] [address] Phone Care Team Providers Care Hospice Volunteer Coordinator Name Role Phone Cheo David DO Unavailable [phone] Susanna Hickman MICRO PHOTOGRAPHER, TAXONOMIST Unavailable Angela Stafford MICRO PHOTOGRAPHER, TAXONOMIST Unavailable Gracy Griffith MD Unavailable Chary Ferris Primary Care Provider + Cameron Camacho MD Unavailable Sharon Tai MD Unavailable [phone] Gail Morales MICRO PHOTOGRAPHER, TAXONOMIST Unavailable Encounter Details Date Type Department Care Team (Latest Contact Info) Description 08/05/2024 Transcribe Orders [facility] [address] [place] [address] Provider, Unknown UNKNOWN Rheumatoid arthritis, involving unspecified site, unspecified whether rheumatoid factor present (HCC) (Primary Dx); Need for prophylactic chemotherapy Social History Tobacco Use Types Packs/Day Years Used Date Smoking Tobacco: Never Smokeless Tobacco: Never Alcohol Use Standard Drinks/Week Comments Yes 0 (1 standard drink = 0.6 oz pur e alcohol) seldom maybe one drink a month [facility] Utilities Answer Date Recorded In the past 12 months has th e electric, gas, oil, or water company [...] often do you attend chur ch or moravian services? Never 06/10/2024 Do you belong to any clubs o r organizations such as mu-ism groups, unions, fraternal or athletic groups, or [...] Total Score - Questions 1-9 0 07/05 [facility] of Occupat ional Health - Occupational Stress [...] any time in the past 12 m [facility], were you homeless or living in a detention (including now)? No 06/10/2024 Education Answer Date Recorded What is the highest level of school you have completed or the highest degree you have received? 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 Not on file Not on file documented as of this encounter Plan of Treatment Upcoming Encounters Date Type Department Care Team (Late st Contact Info) Description 03/16/2025 11:30 AM CDT Office Visit [facility] - Endocrinology - [place] [address] [place] [phone] Cameron Camacho MD [address] [address] [place] [address] 04/05/2025 2:00 PM CDT Office Visit [facility] Group - Gastroenterology - [place] [address]2 [place] [phone] Gail Morales APRN, TAXONOMIST [address]2 [place] [address] 05/26/2025 11:15 AM CDT Office Visit [facility] Group - Family Medicine - [place] [address]2 [facility] [place] [address] Chary Ferris, PAC [address] [place] [address] documented as of this encounter Results * (ABNORMAL) CMP (COMPREHENSIVE METABOLIC PANEL) (09/10/2024 9:23 AM CONE CLASSIFIER TENDER) SODIUM 141 136 - 145 mmol/L 09/10/2024 11:[address] [facility] POTASSIUM 4.0 3.5 - 5.1 mmol/L 09/10/2024 11:[address] [facility] CHLORIDE 105 98 - 107 mmol/L 09/10/2024 11:[address] [facility] CO2, VENOUS 25 22 - 30 mmol/L 09/10/2024 11:[address] [facility] ANION GAP 15.0 <18.0 mmol/L 09/10/2024 11:[address] [facility] GLUCOSE 86 70 - 99 mg/dL 09/10/2024 11:[address] [facility] BUN 19 10 - 20 mg/dL 09/10/2024 11:[address] [facility] CREATININE, BLOOD 0.89 0.60 - 1.00 mg/dL 09/10/2024 11:[address] [facility] BUN/CREATININE RATIO 21(H) 12 - 20 ratio 09/10/2024 11:[address] [facility] TOTAL PROTEIN 7.6 6.3 - 8.2 g/dL 09/10/2024 11:[address] [facility] ALBUMIN 4.3 3.5 - 5.0 g/dL 09/10/2024 11:[address] [facility] A/G RATIO 1.3 1.0 - 2.2 09/10/2024 11:[address] [facility] CALCIUM 10.3 8.7 - 10.5 mg/dL 09/10/2024 11:[address] [facility] T BILI 0.6 0.2 - 1.2 mg/dL 09/10/2024 11:[address] [facility] SGOT (AST) 14 5 - 34 U/L 09/10/2024 11:[address] [facility] SGPT (ALT) 11 0 - 55 U/L 09/10/2024 11:[address] [facility] ALKALINE PHOSPHATASE 74 40 - 150 U/L 09/10/2024 11:[address] [facility] IS THE PATIENT REQUIRED TO BE FASTING? No 09/10/2024 11:[address] [facility] GFR, ESTIMATED >60 >=60 09/10/2024 11:[address] [facility] Comment: Creatinine Clearance is the preferred criteria for selecting drug dose adjustments in renally impaired patients. The GFR is provided as additional pertinent clinical information. GFR is reported in mL/min/1.73 sq m. Calculation based on the Chronic Kidney Disease Epidemiology Collaboration (CKD- EPI) equation refit without adjustment for race. GFR, EST. >60 >=60 024 11:[address] [facility] GFR, EST. NONAFRICAN >60 >=60 09/10/2024 11:[address] [facility] Blood Venipuncture / Unknown 09/10/2024 9:23 AM CONE CLASSIFIER TENDER 09/10/2024 10:49 AM CONE CLASSIFIER TENDER us None Provider CHEMISTRY ORDERABLES Final Resul t [facility] [address] [place] [address] * (ABNORMAL) C-REACTIVE PROTEIN (CRP) QUANT (09/10/2024 9:23 AM CONE CLASSIFIER TENDER) C-REACTIVE PROTEIN 2.72(H) <0.50 mg/dL 09/10/2024 11:09 AM CONE CLASSIFIER TENDER [facility] Blood Venipuncture / Unknown 09/10/2024 9:23 AM CONE CLASSIFIER TENDER 09/10/2024 10:49 AM CONE CLASSIFIER TENDER us None Provider CHEMISTRY ORDERABLES Final Resul t Performing Organization Address [facility] Co de Phone Number [facility] [address] [place] [address] * ERYTHROCYTE SEDIMENTATION RATE (ESR) (09/10/2024 9:23 AM CONE CLASSIFIER TENDER) ESR (SED RATE, ERYTHROCYTE SEDIMENTATION RATE) 18 <30 mm/h 09/10/2024 10:57 AM CONE CLASSIFIER TENDER [facility] Comment: Patients presenting with increased level of fibrinogen, gamma globulins, or abnormally shaped RBCs could affect the results for the erythrocyte sedimentation rate (ESR). Results should be clinically correlated. Blood Venipuncture / Unknown 09/10/2024 9:23 AM CONE CLASSIFIER TENDER 09/10/2024 10:48 AM CONE CLASSIFIER TENDER us None Provider HEMATOLOGY ORDERABLES Final Resu lt Performing Organization Address [facility] Co de Phone Number [facility] [address] [place] [address] documented in this encounter Visit Diagnoses Diagnosis Rheumatoid arthritis, involving unspecified site, unspecified whether rheumatoid factor present (HCC)- Primary Need for prophylactic chemotherapy Need for other prophylactic chemotherapy documented in this encounter Additional Health Concerns Assessment Noted Time PHQ-9 Depression Total Score: 0 07/28/20 9:43 AM CDT documented as of this encounter Care Teams Hospice Volunteer Coordinator Relationship Specialty Start Date End Date Chary Ferris PAC [address] [place] [address] PCP - General Physician Chief Meter Reader 11/17/17 Cheo David DO Gastroenterology 05/09/16 Susanna Hickman APRN, TAXONOMIST Nurse Practitioner Advanced Practice Nurse 05/09/16 Angela Stafford APRN, TAXONOMIST Nurse Practitioner Advanced Practice Nurse 05/09/16 Gracy Griffith MD [address] [place] [address] Family Medicine 04/03/17 Cameron Camacho MD #[address] [phone] Consulting Physician Endocrinology 12/15/23 Sharon Tai MD #2 [place] [address] Consulting Physician Gastroenterology 12/05/22 Gail Morales APRN, TAXONOMIST [address]2 [place] [address] Nurse Practitioner Advanced Practice Nurse 10/06/24 documented as of this encounter
--- OUTSIDE RECORDS SUMMARY | 2024-12-25 13:42 | XMS_ITS | Encounter Summary ---
Author Organization [facility] Address [address] [place] [address] Phone Care Team Providers Care Supervisor Tumbling And Rolling Name Role Phone Cheo David DO Unavailable [phone] Susanna Hickman VENDING MACHINE ATTENDANT, ELECTRONIC HEAT SEAL OPERATOR Unavailable Angela Stafford VENDING MACHINE ATTENDANT, ELECTRONIC HEAT SEAL OPERATOR Unavailable Gracy Griffith MD Unavailable Chary Ferris [facility] Primary Care Provider + Cameron Camacho MD Unavailable Sharon Tai MD Unavailable [phone] Gail Morales APRN, ELECTRONIC HEAT SEAL OPERATOR Unavailable Reason for Visit * Reason Comments Medication Refill Encounter Details Date Type Department Care Team (Late st Contact Info) Description 02/29/2024 Refill [facility] - [facility]astroenterology - [place] [address]2 [place] [address] Gail Morales APRN, ELECTRONIC HEAT SEAL OPERATOR [address] [place] [address] Medication Refill Social History Tobacco Use Types [...] Master's degree (e.g., MA, MS, Shay, MEd, SHOEMAKER APPRENTICE, SYED) 11/29/2020 Sexually Active Control Partners Comments Yes Comments No Sex and Gender Information Value Date Recorded Sex Assigned at Not on file Legal Sex Female 10:48 PM CDT Gender Identity Not on file Sexual Orientation Not on file 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 Requested Prescriptions Pending Prescriptions Disp Refills Viberzi 100 MG Tablet [Pharmacy Med Name: VIBERZI 100 MG TABLET] 60 Tablet 0 Sig: TAKE 1 TABLET BY MOUTH TWICE A DAY Not Delegated - Off Protocol Failed - 02/29/2024 1:33 PM Failed - This refill cannot be delegated Passed - Visit with relevant provider in past 12 months or upcoming 90 days Recent Visits Date Type Provider Dept 10/02/23 Office Visit Sharon Tai MD [facility] 07/28/23 Office Visit Chary Ferris PAC [facility] [...] Description 03/16/2025 11:30 AM CDT [facility] - [place] [address] [place] [address] Cameron Camacho MD #[address] [address] 04/05/2025 2:00 PM CDT [facility] - [place] [address]2 [place] [address] Gail Morales APRN, ELECTRONIC HEAT SEAL OPERATOR #[address] [place] [address] 05/26/2025 11:15 AM CDT Office Visit [facility] Medicine - [place] #2 [place] [address] Chary Ferris, SHAYLA #2 [place] [address] documented as of this encounter Visit Diagnoses Diagnosis Irritable bowel syndrome with diarrhea Irritable bowel syndrome documented in this encounter Additional Health Concerns Assessment Noted Time PHQ-9 Depression Total Score: 0 07/28/20 23 9:43 AM CDT documented as of this encounter Care Teams Supervisor Tumbling And Rolling Relationship Specialty Start Date End Date Chary Ferris PAC [address] [place] [address] PCP - General Physician Fur Repairer 11/17/17 Cheo David DO Gastroenterology 05/09/16 Susanna Hickman APRN, ELECTRONIC HEAT SEAL OPERATOR Nurse Practitioner Advanced Practice Nurse 05/09/16 Angela Stafford APRN, ELECTRONIC HEAT SEAL OPERATOR Nurse Practitioner Advanced Practice Nurse 05/09/16 Gracy Griffith MD [address] [place] [address] Family Medicine 04/03/17 Cameron Camacho MD #[address] [address] Consulting Physician Endocrinology 12/15/23 Sharon Tai MD #[address] [place] [address] Consulting Physician Gastroenterology 12/05/22 Gail Morales APRN, ELECTRONIC HEAT SEAL OPERATOR [address] [place] [address] Nurse Practitioner Advanced Practice Nurse 10/06/24 documented as of this encounter
--- OUTSIDE RECORDS SUMMARY | 2024-12-25 13:42 | XMS_ITS | Encounter Summary ---
Author Organization [facility] Address [address] [place] [address] Phone Care Team Providers Care Lead Application Architect Name Role Phone Cheo David DO Unavailable [phone] Susanna Hickman OPERATIONS ADMINISTRATIVE ASSISTANT, PIPE FITTER STREET SERVICE Unavailable [phone] Angela Stafford OPERATIONS ADMINISTRATIVE ASSISTANT, PIPE FITTER STREET SERVICE Unavailable Gracy Griffith MD Unavailable Chary Ferris PAC Primary Care Provider + Cameron Camacho MD Unavailable Sharon Tai MD Unavailable [phone] Gail Morales APRN, PIPE FITTER STREET SERVICE Unavailable Reason for Visit * Reason Comments Medication Refill Encounter Details Date Type Department Care Team (Late st Contact Info) Description 09/16/2022 Refill [facility] - [facility]astroenterology - [place] #2 [place] [address] Suzie Hearn PAC [address] [place] [address] Medication Refill Social History Tobacco Use Types [...] Master's degree (e.g., MA, MS, Shay, MEd, RESEARCH CONTRACTS SUPERVISOR, SYED) 11/29/2020 Sexually Active Control Partners Comments Yes Comments No Sex and Gender Information Value Date Recorded Sex Assigned at Not on file Legal Sex Female 10:48 PM CDT Gender Identity Not on file Sexual Orientation Not on file 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 No / Unsure 09/04/2022 2:29 PM CDT documented as of this encounter Miscellaneous Notes * Telephone Encounter - Emely Crockett RN - 09/16/2022 1:16 PM ELECTRICITY TRADING ANALYST Pharmacy requesting refill of: Requested Prescriptions Pending Prescriptions Disp Refills ??? Viberzi 100 MG Tablet [Pharmacy Med Name: VIBERZI 100 MG TABLET] 60 Tablet 0 Sig: TAKE 1 TABLET BY MOUTH TWICE A DAY Last fill: 08/21/2022 Patients last OV with GI: 09/04/2022 Next Office Visit with GI: Recall noted to be sent. No appt scheduled per chart review. Viberzi order pended, please review. TRICITY TRADING ANALYST documented in this encounter Plan of Treatment Upcoming Encounters Date Type Department Care Team (Late st Contact Info) Description 03/16/2025 11:30 AM CDT Office Visit [facility] - Endocrinology - [place] [address]2 [place] [address] Cameron Camacho MD #[address] [phone] 04/05/2025 2:00 PM CDT Office Visit [facility] Medical [facility] - Gastroenterology - [place] [address] [place] [address] Gail Morales APRN, PIPE FITTER STREET SERVICE [address] [place] [address] 05/26/2025 11:15 AM CDT Office Visit [facility] - Family Medicine - [place] [address] [place] [address] Chary Ferris PAC [address] [place] [address] documented as of this encounter Visit Diagnoses Diagnosis Irritable bowel syndrome with diarrhea Irritable bowel syndrome documented in this encounter Additional Health Concerns Assessment Noted Time PHQ-9 Depression Total Score: 0 02/16/20 21 2:00 PM CDT documented as of this encounter Care Teams Lead Application Architect Relationship Specialty Start Date End Date Chary Ferris PAC [address] [place] [address] PCP - General Physician Cable Coverer 11/17/17 Cheo David DO Gastroenterology 05/09/16 Susanna Hickman APRN, PIPE FITTER STREET SERVICE Nurse Practitioner Advanced Practice Nurse 05/09/16 Angela Stafford APRN, PIPE FITTER STREET SERVICE Nurse Practitioner Advanced Practice Nurse 05/09/16 Gracy Griffith MD [facility] [place] [address] Family Medicine 04/03/17 Cameron Camacho MD #[address] [address] Consulting Physician Endocrinology 12/15/23 Sharon Tai MD #2 [place] [address] Consulting Physician Gastroenterology 12/05/22 Gail Morales APRN, PIPE FITTER STREET SERVICE [address] [place] [address] Nurse Practitioner Advanced Practice Nurse 10/06/24 documented as of this encounter
--- OUTSIDE RECORDS SUMMARY | 2024-12-25 13:43 | XMS_ITS | Encounter Summary ---
Author Organization [facility] Address [address] [place] [address] Phone Care Team Providers Care Sales Support Specialist Name Role Phone Cheo David DO Unavailable [phone] Susanna Hickman WIND FARM ENGINEER, LIFE CYCLE ASSESSMENT ANALYST Unavailable Angela Stafford WIND FARM ENGINEER, LIFE CYCLE ASSESSMENT ANALYST Unavailable Gracy Griffith MD Unavailable Chary Ferris Primary Care Provider + Cameron Camacho MD Unavailable Sharon Tai MD Unavailable [phone] Gail Morales APRN, LIFE CYCLE ASSESSMENT ANALYST Unavailable Reason for Visit * Reason Comments Medication Refill Encounter Details Date Type Department Care Team (Late st Contact Info) Description 05/12/2023 Refill [facility] - Family Medicine - [place] #2 [place] [id number] Chary Ferris PAC [address]2 [place] [address] Medication Refill Social History Tobacco Use Types [...] Master's degree (e.g., MA, MS, Shay, MEd, MORTGAGE BANKER, SYED) 11/29/2020 Sexually Active Control Partners Comments Yes Comments No Sex and Gender Information Value Date Recorded Sex Assigned at Not on file Legal Sex Female 10:48 PM CDT Gender Identity Not on file Sexual Orientation Not on file 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 No / Unsure 05/05/2023 9:57 AM CDT documented as of this encounter Miscellaneous Notes * Telephone Encounter - Chantel Downey RN - 05/13/2023 10:02 AM CDT PDMP and MEDD 02/16/23 as 90-day supply Medication failed the protocol, provider to review and approve the medication order if appropriate. Requested Prescriptions Pending Prescriptions Disp Refills pregabalin (LYRICA) 150 MG Capsule [Pharmacy Med Name: PREGABALIN 150 MG CAPSULE] 180 Capsule 0 Sig: TAKE 1 CAPSULE BY MOUTH TWICE A DAY Not Delegated - Anticonvulsants Excluding Benzodiazepines Protocol Failed - 05/12/2023 5:52 PM Failed - This refill cannot be delegated Passed - Visit with relevant provider in past 12 months or upcoming 90 days Recent Visits Date Type Provider Dept 05/05/23 Office Visit Chary Ferris PAC [facility] 05/27/22 Office Visit Chary Ferris PAC [facility] [...] Description 03/16/2025 11:30 AM CDT Office Visit [facility] - Endocrinology - [place] #2 [facility] [place] [address] Cameron Camacho MD #[address] [address] 04/05/2025 2:00 PM CDT Office Visit [facility] - Gastroenterology - [place] #2 [facility] [place] [address] Gail Morales APRN, LIFE CYCLE ASSESSMENT ANALYST #2 [place] [address] 05/26/2025 11:15 AM CDT Office Visit [facility] - Family Medicine - [place] #2 [facility] [place] [address] Chary Ferris PAC [address]2 [place] [address] documented as of this encounter Visit Diagnoses Diagnosis Fibromyalgia Mylagia and myositis, unspecified documented in this encounter Additional Health Concerns Assessment Noted Time PHQ-9 Depression Total Score: 0 05/05/20 23 10:00 AM CDT documented as of this encounter Care Teams Sales Support Specialist Relationship Specialty Start Date End Date Chary Ferris PAC [address] [place] [address] PCP - General Physician Manager Therapy 11/17/17 Cheo David DO Gastroenterology 05/09/16 Susanna Hickman APRN, LIFE CYCLE ASSESSMENT ANALYST Nurse Practitioner Advanced Practice Nurse 05/09/16 Angela Stafford APRN, LU Nurse Practitioner Advanced Practice Nurse 05/09/16 Gracy Griffith MD [address] [facility] [place], [place] [id number] Family Medicine 04/03/17 Cameron Camacho MD #[address] [address] Consulting Physician Endocrinology 12/15/23 Sharon Tai MD #2 [place] [address] Consulting Physician Gastroenterology 12/05/22 Gail Morales APRN, LU [address]2 [place] [address] Nurse Practitioner Advanced Practice Nurse 10/06/24 documented as of this encounter
--- OUTSIDE RECORDS SUMMARY | 2024-12-25 13:43 | XMS_ITS | Data Portability ---
Author Organization [facility] Address [address] [facility] [address] [place] [address] Care Team Providers Care Gimp Buttonhole Machine Operator Name Role Phone HAMIDA PATTERSON Primary Care Provider EVI CONTRERAS Referring Provider Assessment No assessment recorded. Plan of Treatment Reminders Order Date Submit Date Provider Last Modified By Organization Details Last Modified Time Details Appointments None record ed. Lab None record ed. Referral None record ed. Procedures None record ed. Surgeries None record ed. Imaging None record ed. Medication Orders None record ed. Patient TargetsNo targets recorded. Patient InstructionsNo instructions recorded. Reason for Referral None Reported. Procedures Surgical History Date Name Laterality Status Provider Name and Address Organization Details Recorded Time 11/21/2017 Sleep Study completed Josh Simons [id number] [facility] [address], [place], [address], [facility] 12/11/2017 15:52:29 Imaging Results None recorded. Procedure Notes None recorded. Medical Equipment None Reported. Vitals None Recorded Social History None recorded. Functional Status None recorded. Mental Status None recorded. Family History Nothing Reported. Medical History No medical history recorded. Gynecological HistoryNo gynecological history recorded. Obstetrics History GPAL:G 0 P 0 0 0 0 Past Encounters Encounter ID Performer Location Encounter Start Date Encounter Closed Date Diagnosis/Indication Diagnosis SNOMED-CT Code Diagnosis ICD10 Code Diagnosis Note [id number] [facility] [phone]) [phone] [facility] [address] [place] [address] 11/21/2017 12:32:07 11/24/2017 21:49:29 Obstructive sleep apnea of adult 3195249483 103 G47.33 Health Concerns Section Related Observation LastModified by Organization Detai ls LastModified Time None Recorded Concern Status LastModified by Organization Details LastModified Time None Recorded Advance Directives Directive None Recorded Payers Encounter Date Sequence Insurance Name Policy Number Policy Limon Covered Member ID Limon Member ID Guarantor Name 11/20/2017 1 [employer] DAISY COLVIN [id number] Ginny Henry [id number] Ginny Henry OBGyn Episode No OBEpisode recorded.
--- OUTSIDE RECORDS SUMMARY | 2024-12-25 13:43 | XMS_ITS | Encounter Summary ---
Author Organization [facility] Address [address] [place] [address] Phone Care Team Providers Care Security Intelligence Analyst Name Role Phone Cheo David DO Unavailable [phone] Susanna Hickman ADMISSIONS RN, DIRECTOR SERVICE Unavailable Angela Stafford ADMISSIONS RN, DIRECTOR SERVICE Unavailable Gracy Griffith MD Unavailable [phone] [facility] Primary Care Provider + Cameron Camacho MD Unavailable Sharon Tai MD Unavailable [phone] Gail Morales APRN, DIRECTOR SERVICE Unavailable Reason for Visit * Reason Comments Medication Refill Encounter Details Date Type Department Care Team (Late st Contact Info) Description 03/08/2023 Refill [facility] - Gastroenterology - [place] [address] [place] [address] Gail Morales APRN, DIRECTOR SERVICE [address]2 [place] [address] Medication Refill Social History Tobacco Use Types [...] Master's degree (e.g., MA, MS, Shay, MEd, SEPHORA OPERATIONS CONSULTANT, SYED) 11/29/2020 Sexually Active Control Partners Comments Yes Comments No Sex and Gender Information Value Date Recorded Sex Assigned at Not on file Legal Sex Female 10:48 PM CDT Gender Identity Not on file Sexual Orientation Not on file 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 Requested Prescriptions Pending Prescriptions Disp Refills Dexilant 60 MG CAPSULE DELAYED RELEASE [Pharmacy Med Name: DEXILANT DR 60 MG CAPSULE] 90 Capsule 1 Sig: TAKE 1 CAPSULE BY MOUTH EVERY DAY Proton Pump Inhibitors Protocol Failed - 03/08/2023 12:48 AM Failed - Active on medication list Passed - No positive test in the past 12 months or most recent test was negative Passed - Visit with relevant provider in past 12 months or upcoming 90 days Recent Visits Date Type Provider Dept 12/05/22 Office Visit [place] [facility] [place] [place] 09/04/22 Office Visit Suzie Hearn Debra, [place] [facility] [place] [place] 05/27/22 Office Visit Chary Ferris [facility] [place] [place] Showing recent visits within past 365 days and meeting all other requirements Future Appointments No visits were found meeting these conditions. Showing future appointments within next 90 days and meeting all other requirements Passed - No active on record documented in this encounter Plan of Treatment Upcoming Encounters Date Type Department Care Team (Late st Contact Info) Description 03/16/2025 11:30 AM CDT [facility] [place] [address] [place] [address] Cameron Camacho MD #[address] [address] 04/05/2025 2:00 PM CDT [facility] - [place] [address]2 [place] [address] Gail Morales APRN, DIRECTOR SERVICE [address]2 [place] [address] 05/26/2025 11:15 AM CDT Office Visit [facility] Family Medicine - [place] #2 [place] [address] Chary Ferris, SHAYLA [address]2 [place] [address] documented as of this encounter Visit Diagnoses Diagnosis Gastroesophageal reflux disease with esophagitis without hemorrhage Irritable bowel syndrome with diarrhea Irritable bowel syndrome documented in this encounter Additional Health Concerns Assessment Noted Time PHQ-9 Depression Total Score: 0 02/16/20 21 2:00 PM CDT documented as of this encounter Care Teams Security Intelligence Analyst Relationship Specialty Start Date End Date Chary Ferris PAC [address]2 [place] [address] PCP - General Physician Rural Mail Contractor 11/17/17 Cheo David DO Gastroenterology 05/09/16 Susanna Hickman APRN, DIRECTOR SERVICE Nurse Practitioner Advanced Practice Nurse 05/09/16 Angela Staffrod APRN, DIRECTOR SERVICE Nurse Practitioner Advanced Practice Nurse 05/09/16 Gracy Griffith MD [address] [facility] [place] [address] Family Medicine 04/03/17 Cameron Camacho MD #[address] [address] Consulting Physician Endocrinology 12/15/23 Sharon Tai MD #2 [place] [address] Consulting Physician Gastroenterology 12/05/22 Gail Morales APRN, DIRECTOR SERVICE #2 [place] [address] Nurse Practitioner Advanced Practice Nurse 10/06/24 documented as of this encounter
--- OUTSIDE RECORDS SUMMARY | 2024-12-25 13:43 | XMS_ITS | Encounter Summary ---
Author Organization [facility] Address [address] [place] [address] Phone Care Team Providers Care Bowl Turner Name Role Phone Cheo David DO Unavailable [phone] Susanna Hickman HAND CLOTH EXAMINER, QA ARCHITECT Unavailable Angela Stafford HAND CLOTH EXAMINER, QA ARCHITECT Unavailable Gracy Griffith MD Unavailable [phone] Chary Ferris PAC Primary Care Provider + Cameron Camacho MD Unavailable Sharon Tai MD Unavailable [phone] Gail Morales APRN, QA ARCHITECT Unavailable Reason for Visit * Reason Comments Medication Refill Encounter Details Date Type Department Care Team (Late st Contact Info) Description 01/08/2023 Refill [facility] - Gastroenterology - [place] [address]2 [place] [address] Suzie Hearn PAC [address]2 [place] [address] Medication Refill Social History Tobacco Use Types [...] Master's degree (e.g., MA, MS, Shay, MEd, SUPERVISOR MAILS, SYED) 11/29/2020 Sexually Active Control Partners Comments Yes Comments No Sex and Gender Information Value Date Recorded Sex Assigned at Not on file Legal Sex Female 10:48 PM CDT Gender Identity Not on file Sexual Orientation Not on file 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 Cannot be delegated to RN, please sign if you agree. Requested Prescriptions Pending Prescriptions Disp Refills Viberzi 100 MG Tablet [Pharmacy Med Name: VIBERZI 100 MG TABLET] 60 Tablet 2 Sig: TAKE 1 TABLET BY MOUTH TWICE A DAY Not Delegated - Off Protocol Failed - 01/08/2023 3:30 PM Failed - This refill cannot be delegated Passed - Visit with relevant provider in past 12 months or upcoming 90 days Recent Visits Date Type Provider Dept 12/05/22 Office Visit Sharon Tai MD [facility] [place] [place] 09/04/22 Office Visit Suzie Hearn, SHAYLA [facility] [place] [facility] [place] 05/27/22 Office Visit Chary Ferris, [facility] [place] Showing recent visits within past 365 days and meeting all other requirements Future Appointments No visits were found meeting these conditions. Showing future appointments within next 90 days and meeting all other requirements ROSCOPE TESTER documented in this encounter Plan of Treatment Upcoming Encounters Date Type Department Care Team (Late st Contact Info) Description 03/16/2025 11:30 AM CDT Office Visit [facility] - Endocrinology - [place] [address]2 [place] [address] Cameron Camacho MD #[address] [address] 04/05/2025 2:00 PM CDT Office Visit [facility] - Gastroenterology - [place] #2 [place] [address] Gail Morales APRN, QA ARCHITECT #2 [place] [address] 05/26/2025 11:15 AM CDT Office Visit [facility] - Family Medicine - [place] #2 [place] [address] Chary Ferris PAC [address] [place] [address] documented as of this encounter Visit Diagnoses Diagnosis Irritable bowel syndrome with diarrhea Irritable bowel syndrome documented in this encounter Additional Health Concerns Assessment Noted Time PHQ-9 Depression Total Score: 0 02/16/20 21 2:00 PM CDT documented as of this encounter Care Teams Bowl Turner Relationship Specialty Start Date End Date Chary Ferris PAC [address] [place] [address] PCP - General Physician Engraver Tender 11/17/17 Cheo David DO Gastroenterology 05/09/16 Susanna Hickman APRN, QA ARCHITECT Nurse Practitioner Advanced Practice Nurse 05/09/16 Angela Stafford APRN, QA ARCHITECT Nurse Practitioner Advanced Practice Nurse 05/09/16 Gracy Griffith MD [address] [place] [address] Family Medicine 04/03/17 Cameron Camacho MD #[address] [address] Consulting Physician Endocrinology 12/15/23 Sharon Tai MD #2 [place] [address] Consulting Physician Gastroenterology 12/05/22 Gail Morales APRN, QA ARCHITECT #2 [place] [address] Nurse Practitioner Advanced Practice Nurse 10/06/24 documented as of this encounter
--- OUTSIDE RECORDS SUMMARY | 2024-12-25 13:43 | XMS_ITS | Encounter Summary ---
Author Organization [facility] Address [address] [place] [address] Phone Care Team Providers Care Documentation Lead Name Role Phone Cheo David DO Unavailable [phone] Susanna Hickman EGG PACKER, MASKING MACHINE FEEDER Unavailable Angela Stafford EGG PACKER, MASKING MACHINE FEEDER Unavailable Gracy Griffith MD Unavailable [phone] Chary Ferris PAC Primary Care Provider + Cameron Camacho MD Unavailable Sharon Tai MD Unavailable [phone] Gail Morales EGG PACKER, MASKING MACHINE FEEDER Unavailable Reason for Visit * Reason Comments Medication Refill Encounter Details Date Type Department Care Team (Late st Contact Info) Description 02/18/2020 Refill [facility] [address] [place] [address] Chary Ferris, PAC [address] [place] [address] Medication Refill Social History Tobacco Use Types Packs/Day Years Used Date Smoking Tobacco: Never Smokeless Tobacco: Never Alcohol Use Standard Drinks/Week Comments Yes 0 (1 standard drink = 0.6 oz pur e alcohol) seldom maybe one drink a month PHQ-2 Answer Date Recorded PHQ-2 Score 0 07/07/2019 Comments No Sex and Gender Information Value Date Recorded Sex Assigned at Not on file Legal Sex Female 10:48 PM CDT Gender Identity Not on file Sexual Orientation Not on file 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 Not on file Not on file documented as of this encounter Miscellaneous Notes * Telephone Encounter - Rosi Mc RN - 02/18/2020 8:24 AM CDT Requested Prescriptions Pending Prescriptions Disp Refills DULoxetine (CYMBALTA) [address] Particles [Pharmacy Med Name: DULOXETINE HCL DR 60 MG CAP] 90 Cap 2 Sig: TAKE 1 CAPSULE BY MOUTH EVERY DAY Not Delegated - Psychiatry: Antidepressants: Other Failed - 02/18/2020 8:24 AM Failed - This refill cannot be delegated Passed - Valid encounter within last 12 months Past Office Visits Recent Outpatient Visits 3 months ago Hyperlipidemia, unspecified hyperlipidemia type [facility] Fritcher, Annette, PAC 9 months ago Gastroesophageal reflux disease, esophagitis presence not specified [facility] Fritcher, Annette, PAC 1 year ago Sinusitis, unspecified chronicity, unspecified location [facility] Fritcher, Annette, PAC 1 year ago Fibromyalgia [facility] Fritcher, Annette, PAC 1 year ago Diarrhea, unspecified type [facility] Fritcher, Annette, PAC Upcoming Appointments Passed - Last BP in normal range BP Readings from Last 1 Encounters: 10/29/19 106/62 documented in this encounter Plan of Treatment Upcoming Encounters Date Type Department Care Team (Late st Contact Info) Description 03/16/2025 11:30 AM CDT Office Visit [facility] - Endocrinology - [place] #2 [place] [address] Cameron Camacho MD #[address] [address] 04/05/2025 2:00 PM CDT Office Visit [facility] - Gastroenterology [facility] #2 [place] [address] Gail Morales APRN, MASKING MACHINE FEEDER #2 [place] [address] 05/26/2025 11:15 AM CDT Office Visit [facility] Family Medicine [facility] #2 [place] [address] Chary Ferris, SHAYLA #2 [place] [address] documented as of this encounter Visit Diagnoses Not on filedocumented in this encounter Additional Health Concerns Infection Onset Date Last Indicated Resolved Time COVID - 19 11/08/2021 11/09/2021 11/28/2021 12:1 6 AM X RAY EQUIPMENT MECHANIC Assessment Noted Time PHQ-9 Depression Total Score: 0 10/29/20 19 10:57 AM X RAY EQUIPMENT MECHANIC documented as of this encounter Care Teams Documentation Lead Relationship Specialty Start Date End Date Chary Ferris PAC #[address] [place] [address] PCP - General Physician Police Communications Operator 11/17/17 Cheo David DO Gastroenterology 05/09/16 Susanna Hickman APRN, MASKING MACHINE FEEDER Nurse Practitioner Advanced Practice Nurse 05/09/16 Angela Stafford APRN, MASKING MACHINE FEEDER Nurse Practitioner Advanced Practice Nurse 05/09/16 Gracy Griffith MD [address] [place] [address] Family Medicine 04/03/17 Cameron Camacho MD #[address] [address] Consulting Physician Endocrinology 12/15/23 Sharon Tai MD #2 [place] [address] Consulting Physician Gastroenterology 12/05/22 Gail Morales APRN, MASKING MACHINE FEEDER #2 [place] [address] Nurse Practitioner Advanced Practice Nurse 10/06/24 documented as of this encounter
--- OUTSIDE RECORDS SUMMARY | 2024-12-25 13:43 | XMS_ITS | Clinical Summary ---
Author Organization [facility] Address [address] [place] [address] Care Team Providers Care Quality Control Supervisor Name Role Phone Chary Ferris Primary Care Provider + [phone] Jose Juan Healy PT Unavailable Unavailable Allergies Active Allergy Reactions Criticality Noted Date Comments Acetaminophen Hives,Itching,Rash,O th er (See comments) High 12/24/2012 Adhesive Other (See comments) Low 10/20/2023 Adhesive Tape-Silicones Rash,Other (See comments) Medium 04/09/2016 Cetirizine Hcl Palpitations Low Diclofenac Sodium Vomiting Low 10/20/2023 Diclofenac Sodium Topical Gell 1% Esomeprazole Diarrhea,Nausea Only,Vomiting Low Hydrocodone-Acetaminoph en Hives,Rash Medium Morphine Hives,Rash Medium Omeprazole Diarrhea,Nausea Only,Other (See comments),Vomiting Low Causing diarrhea Pantoprazole Sodium Diarrhea,Nausea Only,Vomiting Low Tramadol Hives,Rash,Unknown Medium 11/25/2012 [facility] ED AND BIT HER TONGUE [facility] ED AND BIT HER TONGUE Medications pregabalin (LYRICA) 150 mg capsule Take 1 capsule (150 mg total) by mouth 08/27/20 18 Active dexlansoprazole (DEXILANT) 60 mg capsule TAKE 1 CAPSULE BY MOUTH EVERY DAY 08/31/20 18 Active cevimeline (EVOXAC) 30 mg capsuleIndications :Xerostomia Secondary to Sjogren's Syndrome Take 1 capsule (30 mg total) by mouth 2 (two) times a day 3 11/11/19 19 Active atenolol (TENORMIN) 100 mg tablet Take 0.5 tablets (50 mg total) by mouth daily 3 11/11/19 19 Active famotidine (PEPCID) 20 mg tablet Take 1 tablet (20 mg total) by mouth 2 (two) times a day Active ondansetron ODT (ZOFRAN-ODT) 4 mg disintegrating tablet TAKE 1 TABLET BY MOUTH EVERY 8 HOURS NEEDED FOR NAUSEA FIRST LINE 09/23/20 23 Active loratadine (CLARITIN REDITABS) 10 mg disintegrating tablet Take 1 tablet (10 mg total) by mouth daily Active Breo Ellipta 100-25 mcg/dose diskus inhaler Inhale 1 puff daily Active cyclobenzaprine (FLEXERIL) 5 mg tablet Take 2 tablets (10 mg total) by mouth 2 (two) times a day as needed 08/24/20 14 Active estradioL (VAGIFEM) 10 mcg tablet INSERT 1 TABLET TWICE A WEEK BY VAGINAL ROUTE, FOR MAINTENANCE DOSING. Active semaglutide (OZEMPIC) 1 mg/dose (2 mg/1.5 mL) pen injector injection Inject 1 mg under the skin once a week Active DULoxetine DR (CYMBALTA) 60 mg capsule Take by mouth daily 10/28/20 24 Active methotrexate 2.5 mg tabletIndications: Other - non-oncology,autoi mmune disease Take 6 tablets (15 mg total) by mouth every 7 days 72 tablet 11/17/19 25 025 Active folic acid (FOLVITE) 1 mg tabletIndications: Folate Deficiency Take 1 tablet (1 mg total) by mouth daily 90 tablet 3 11/17/19 25 026 Active Active Problems Problem Noted Date Diagnosed Date Hand pain, left 06/16/2024 CRP elevated 06/16/2024 Fibromyalgia 06/06/2024 Encounters Date Type Department Care Team Description 11/17/2024 1:00 PM FLORIST'S DECORATOR Office Visit [facility] Rheumatology [address] [place] [address] [place] [phone] Juliann Chakraborty MD VICK positive (Primary Dx); Rheumatoid arthritis, involving unspecified site, unspecified whether rheumatoid factor present (HCC); Fibromyalgia; High risk medication use 10/07/2024 Telephone [facility] Sports Medicine and Primary Care at [address] [place] [address] Sherman Bravo DO 10/06/2024 11:00 AM FLORIST'S DECORATOR Office Visit [facility] Sports Medicine and Primary Care at [address] [place] [address] Sherman Bravo DO Primary osteoarthritis of right knee (Primary Dx) 09/28/2024 Telephone [facility] Medical [facility] Sports Medicine and Primary Care at [address] [place] [address] Liss Jones MA 09/27/2024 10:42 AM FLORIST'S DECORATOR - 09/27/2024 11:59 PM FLORIST'S DECORATOR Hospital Encounter [facility] [address] [place] [address] Acute internal derangement of right knee Discharge Disposition: Discharge to home or self care from Last 3 Months Surgical History Surgery Date Site/Laterality Comments BACK SURGERY Medical History Medical History Date Comments Hx Other Medical nervous disorde r Hx Other Medical spinal fusion Hx Other Medical Headache, migra ine Peripheral neuropathy Thyroid disease Gastric reflux Migraines Family History Medical History Relation Name Comments Breast cancer Cousin maternal 1st Breast cancer Father's Sister 1 mimi Breast cancer Father's Sister 2 amy Breast cancer Father's Sister 3 irene Breast cancer Father's Sister 4 dania Diabetes Other 1 Family history of Diabetes mellitus; Hypertension Other 2 Family history of Hypertension; Relation Name Status Comments Cousin maternal 1st Alive Father's Sister 1 mimi Father's Sister 2 amy Alive Father's Sister 3 irene Father's Sister 4 dania Other 1 Other 2 Social History Tobacco Use Types Packs/Day Years Used Date Smoking Tobacco: Never Passive Smoke Exposure: Never Tobacco Cessation:Counseling Given: Not Answered Alcohol Use Standard Drinks/Week Comments Yes 0 (1 standard drink = 0.6 oz pur e alcohol) Social Connection and Isolat ion Panel [NHANES] Answer Date Recorded In a typical week, how many times do you talk on the phone with family, friends, or neighbors? More than three times a week 05/17/2024 How often do you get togethe r with friends or relatives? Three times a week 05/17/2024 How often do you attend [facility] or orthodox services? Never 05/17/2024 Do you belong to any clubs o r organizations such as spiritism groups, unions, fraternal or athletic groups, or school groups? Yes 05/17/2024 How often do you attend meet ings of the clubs or organizations you belong to? 1 to 4 times per year 05/17/2024 Are you , , di vorced, , never , or living with a partner? 05/17/2024 AUDIT-C Answer Date Recorded Q1: How often do you have a drink containing alc ohol? 2-4 times a month 08/26/2024 Q2: How many drinks containi ng alcohol do you have on a typical day when you are drinking? 1 or 2 08/26/2024 Q3: How often do you have si x or more drinks on one occasion? Less than monthly 08/26/2024 Overall Financial Resource Strain (CARDIA) Answe r Date Recorded How hard is it for you to pa y for the very basics like food, housing, medical care, and heating? Not very hard 05/17/2024 PHQ-2 Answer Date Recorded Patient Health Questionnaire-2 Score 0 05/17/2024 [facility] - Occupational Stress Questionnaire Answer Date Recorded Do you feel stress - tense, restless, nervous, or anxious, or unable to sleep at night because your mind is troubled all the time - these days? Only a little 05/17/2024 Exercise Vital Sign Answer Date Recorde d On average, how many days pe r week do you engage in moderate to strenuous exercise (like a brisk walk)? 2 days 05/17/2024 On average, how many minutes do you engage in exercise at this level? 30 min 05/17/2024 Hunger Vital Sign Answer Date Recorded Within the past 12 months, y ou worried that your food would run out before you got the money to buy more. Never true 05/17/20 24 Within the past 12 months, t he food you bought just didn't last and you didn't have money to get more. Never true 05/17/2024 PRAPARE - Transportation Answer Date Re corded In the past 12 months, has l ack of transportation kept you from medical appointments or from getting medications? No 05/03 In the past 12 months, has l ack of transportation kept you from meetings, work, or from getting things needed for daily living? No 05/17/2024 Housing Stability Vital Sign Answer Jason e Recorded In the last 12 months, was t here a time when you were not able to pay the mortgage or rent on time? No 05/17/2024 Number of Times Moved in the Last Year Not on fi le 05/17/2024 Homeless in the Last Year Not on file 2023 Comments No Sex and Gender Information Value Date Recorded Sex Assigned at Not on file Legal Sex Female 6:20 AM FLORIST'S DECORATOR Gender Identity Female 06/19/2024 3:55 PM CDT Sexual Orientation Straight 06/19/2024 3: 55 PM CDT Obstetrics History Para Term AB IAB SAB Ectopic Multiple Livin g Live Births 0 0 0 0 0 0 0 0 0 0 0 Last Filed Vital Signs Vital Sign Reading Time Taken Comments Blood Pressure 101/71 11/17/2024 12:53 PM FLORIST'S DECORATOR Pulse 94 11/17/2024 12:53 PM FLORIST'S DECORATOR Temperature 36.2 C (97.2 F) 11/17/2024 12:53 PM FLORIST'S DECORATOR Respiratory Rate 16 08/26/2024 11:09 AM CDT Oxygen Saturation 100% 11/17/2024 12:53 PM FLORIST'S DECORATOR Inhaled Oxygen Concentration - - Weight 86.4 kg (190 lb 6.4 oz) 11/17/2024 12:53 PM FLORIST'S DECORATOR Height 170.2 cm (5' 7 ) 11/17/2024 12:53 PM FLORIST'S DECORATOR Body Mass Index 29.82 11/17/2024 12:53 PM FLORIST'S DECORATOR Plan of Treatment Health Maintenance Due Date Last Done Comments Cervical Cancer Screening 1967 Colon Cancer Screening-Colonoscopy 1967 Hepatitis C Screening 1967 Regular Well Visit/Exam 18-64 1985 Pneumococcal vaccine <65 (2 of 2 - PCV) 10/03/2007 10/03/2006 Covid-19 Vaccine (2023-2 5 season) 2024 07/22/2022, 08/24/2021, 12/28/2020, Additional history exists Breast Cancer Screening-Mammogram 11/27/2024 11/27/2023, 11/27/2023, 10/17/2022, Additional history exists Depression Screening 05/17/2025 05/17/2024 DTaP/Tdap/Td Vaccine (3 - Td or Tdap) 11/03/2028 11/03/2018, 10/03/2006 Hepatitis B Screening Completed 07/04/2009 , 02/01/2009, 01/01/2009 Zoster Vaccine Completed 11/04/2019, 07/27/2019 Influenza Vaccine Completed 08/06/2024, , 08/08/2022, Additional history exists Procedures Procedure Name Priority Date/Time Associated Diagnosis Comments MRI KNEE RIGHT WO CONTRAST Schedule Routine, Read Routine (OP Routine) 09/27/2024 11:39 AM FLORIST'S DECORATOR Acute internal derangement of right knee SCREENING MAMMOGRAM BILATERAL W REMY Schedule Routine, Read Routine (OP Routine) 11/27/2023 4:54 PM FLORIST'S DECORATOR Screening mammogram, encounter for from Last 3 Months or Most Recently Relevant to Health Maintenance Results * MRI Knee Right WO Contrast (09/27/2024 11:39 AM FLORIST'S DECORATOR) Anatomical Region Laterality Modality Lower Extremities Right Magnetic Reson ance 09/28/2024 7:37 AM FLORIST'S DECORATOR Narrative 09/28/2024 7:41 AM FLORIST'S DECORATOR EXAM DESCRIPTION: MRI KNEE RIGHT WO CONTRAST REASON FOR STUDY: Right Knee Pain In May of 2024 pt has been experiencing chronic right knee pain; the pain is medial in a horseshoe shape and posterior. Unknown injury.Hx of injections TECHNIQUE: Multiplanar, multisequence MRI of the right knee was performed without contrast. COMPARISON: 06/12/2024 FINDINGS: In the medial compartment, there is a complex tear of the posterior horn root junction with radial component and extrusion of the body into the medial gutter. There is deep partial and full-thickness chondrosis of the femoral condyle. There is partial-thickness chondrosis of the tibial plateau. In the lateral compartment, the meniscus is intact. There is mild chondrosis. In the patellofemoral compartment, there is moderate to severe chondrosis. The cruciate and lateral collateral ligaments are intact. Chronic sprain of the proximal medial collateral ligament is noted. Extensor mechanism enthesophytes are present. There is insertional popliteus tendinopathy with likely intraosseous ganglia formation. Small knee effusion is present with synovitis. There are no loose bodies. IMPRESSION: Complex tear of the right medial meniscus posterior horn root junction with radial component and extrusion of the body into the medial gutter. Moderate to severe patellofemoral predominant tricompartmental right knee chondrosis. Small right knee effusion with synovitis. THIS IS AN ELECTRONICALLY VERIFIED FINAL REPORT 09/28/2024 7:41 AM - Electronically signed by Sherman Campbell M.D. MF: RADHAMES Report ID: [id number] Reading Location: [id number] Procedure Note Sherman Campbell MD - 09/28/2024 EXAM DESCRIPTION: MRI KNEE RIGHT WO CONTRAST REASON FOR STUDY: Right Knee Pain In May of 2024 pt has been experiencing chronic right knee pain; the painis medial in a horseshoe shape and posterior. Unknown injury.Hx of injections TECHNIQUE: Multiplanar, multisequence MRI of the right knee wasperformed without contrast. COMPARISON: 06/12/2024 FINDINGS: In the medial compartment, there is a complex tear of the posterior hornroot junction with radial component and extrusion of the body into the medial gutter. There is deep partial and full-thickness chondrosis of thefemoral condyle. There is partial-thickness chondrosis of the tibial plateau. In the lateral compartment, the meniscus is intact. There is mildchondrosis. In the patellofemoral compartment, there is moderate to severechondrosis. The cruciate and lateral collateral ligaments are intact. Chronic sprainof the proximal medial collateral ligament is noted. Extensor mechanism enthesophytes are present. There is insertional popliteus tendinopathywith likely intraosseous ganglia formation. Small knee effusion is presentwith synovitis. There are no loose bodies. IMPRESSION: Complex tear of the right medial meniscus posterior horn root junctionwith radial component and extrusion of the body into the medial gutter. Moderate to severe patellofemoral predominant tricompartmental right knee chondrosis. Small right knee effusion with synovitis. THIS IS AN ELECTRONICALLY VERIFIED FINAL REPORT 09/28/2024 7:41 AM - Electronically signed by Sherman Campbell M.D. MF: RADHAMES Report ID: [id number] Reading Location: [id number] Sherman Bravo DO IMG MRI PROCEDURES Fin al Result * Screening Mammogram Bilateral W Remy (11/27/2023 4:54 PM FLORIST'S DECORATOR) Anatomical Region Laterality Modality Breast Bilateral Mammography 11/28/2023 8:16 AM FLORIST'S DECORATOR Impressions 11/28/2023 8:16 AM FLORIST'S DECORATOR There is no mammographic evidence of malignancy. A 1 year screening mammogram is recommended. BI-RADS: 1 - Negative. The patient has been or will be contacted. The patient will be entered into a reminder system with a target due date of 1 year for her next mammogram. Electronically signed by: Sakina Mattson M.D. Narrative 11/28/2023 8:16 AM FLORIST'S DECORATOR EXAMINATION: SCREENING MAMMOGRAM BILATERAL W REMY ORDERING HEALTHCARE PROVIDER: SELF SCREENING MAMMOGRAM HISTORY: Routine screening mammography. COMPARISON: 10/17/2022, 06/08/2021, 06/01/2020, 05/21/2019, 05/12/2018 TECHNIQUE: CC and MLO views of the bilateral breasts were obtained with digital technique using breast tomosynthesis with C view. Computer aided detection was utilized. FINDINGS: DENSITY: The tissue of the bilateral breasts is almost entirely fatty. BREASTS: There are no suspicious masses, suspicious calcifications, or other suspicious findings in either breast. There has been no suspicious interval change. Self Screening Mammogram IMG MAMMO PROCEDURES Fi nal Result from Last 3 Months or Most Recently Relevant to Health Maintenance Insurance [facility] ACCESS CHOICE ANTH ACCESS CHOICE Care Teams Quality Control Supervisor Relationship Specialty Start Date End Date Chary Ferris PA [address] [address] [place] [address] PCP - General Patient Support Specialist 11/16/18 Jose Juan Healy PT Physical Therapist Physical Therapy 07/30/24
--- OUTSIDE RECORDS SUMMARY | 2024-12-25 13:43 | XMS_ITS | Referral Summary ---
Author Organization [facility] Address [address] [place] [address] Care Team Providers Care Cloth Dye Range Operator Name Role Phone Chary Ferris Primary Care Provider [phone] JoseJ uan Haely PT Unavailable Unavailable Encounters Date Type Department Care Team Description 11/17/2024 1:00 PM PHOTO EQUIPMENT TECHNICIAN Office Visit [facility] Rheumatology [address] [place] [address] [address] [place] [id number] Juliann Chakraborty MD VICK positive (Primary Dx); Rheumatoid arthritis, involving unspecified site, unspecified whether rheumatoid factor present (HCC); Fibromyalgia; High risk medication use 10/07/2024 Telephone [facility] Sports Medicine and Primary Care at [address] [address] Sherman Bravo DO 10/06/2024 11:00 AM PHOTO EQUIPMENT TECHNICIAN Office Visit [facility] Sports Medicine and Primary Care at [address] [address] Sherman Bravo DO Primary osteoarthritis of right knee (Primary Dx) 09/28/2024 Telephone [facility] Sports Medicine and Primary Care at [address] [address] Liss Jones MA 09/27/2024 10:42 AM PHOTO EQUIPMENT TECHNICIAN - 09/27/2024 11:59 PM PHOTO EQUIPMENT TECHNICIAN Hospital Encounter [facility] 1 [place] [address] Acute internal derangement of right knee Discharge Disposition: Discharge to home or self care from Last 3 Months Allergies Active Allergy Reactions Criticality Noted Date [...] left 06/16/2024 CRP elevated 06/16/2024 Fibromyalgia 06/06/2024 Social History Tobacco Use Types Packs/Day Years [...] week 05/17/2024 How often do you attend chur or orthodox services? Never 05/17/2024 Do you belong to any clubs o r organizations such as christian groups, unions, fraternal or athletic groups, or [...] Recorded Patient Health Questionnaire-2 Score 0 05/17/2024 [facility] of Occupat ional [facility] - Occupational Stress Questionnaire Answer Date Recorded [...] money to buy more. Never true 05/17/20 Within the past 12 months, t he [...] on file Legal Sex Female 6:20 AM PHOTO EQUIPMENT TECHNICIAN Gender Identity Female 06/19/2024 3:55 PM CDT Sexual Orientation Straight 06/19/2024 3: 55 PM CDT Last Filed Vital Signs Vital Sign Reading Time Taken Comments Blood Pressure 101/71 11/17/2024 12:53 PM PHOTO EQUIPMENT TECHNICIAN Pulse 94 11/17/2024 12:53 PM PHOTO EQUIPMENT TECHNICIAN Temperature 36.2 C (97.2 F) 11/17/2024 12:53 PM PHOTO EQUIPMENT TECHNICIAN Respiratory Rate 16 08/26/2024 11:09 AM CDT Oxygen Saturation 100% 11/17/2024 12:53 PM PHOTO EQUIPMENT TECHNICIAN Inhaled Oxygen Concentration - - Weight 86.4 kg (190 lb 6.4 oz) 11/17/2024 12:53 PM PHOTO EQUIPMENT TECHNICIAN Height 170.2 cm (5' 7 ) 11/17/2024 12:53 PM PHOTO EQUIPMENT TECHNICIAN Body Mass Index 29.82 11/17/2024 12:53 PM PHOTO EQUIPMENT TECHNICIAN Plan of Treatment Not on file Procedures Procedure Name Priority Date/Time Associated Diagnosis Comments MRI KNEE RIGHT WO CONTRAST Schedule Routine, Read Routine (OP Routine) 09/27/2024 11:39 AM PHOTO EQUIPMENT TECHNICIAN Acute internal derangement of right knee SCREENING MAMMOGRAM BILATERAL W REMY Schedule Routine, Read Routine (OP Routine) 11/27/2023 4:54 PM PHOTO EQUIPMENT TECHNICIAN Screening mammogram, encounter for from Last 3 Months or Most Recently Relevant to Health Maintenance Results * MRI Knee Right WO Contrast (09/27/2024 11:39 AM PHOTO EQUIPMENT TECHNICIAN) Anatomical Region Laterality Modality Lower Extremities Right Magnetic Reson ance 09/28/2024 7:37 AM PHOTO EQUIPMENT TECHNICIAN Narrative 09/28/2024 7:41 AM PHOTO EQUIPMENT TECHNICIAN EXAM DESCRIPTION: MRI KNEE RIGHT WO CONTRAST [...] Sherman Campbell M.D. MF: RADHAMES Report ID: [id number] Reading Location: [place] [address] Procedure Note Sherman Campbell MD - 09/28/2024 [...] Sherman Campbell M.D. MF: RADHAMES Report ID: [id number] Reading Location: [place] [address] Sherman Bravo DO IMG MRI PROCEDURES Fin al Result * Screening Mammogram Bilateral W Remy (11/27/2023 4:54 PM PHOTO EQUIPMENT TECHNICIAN) Anatomical Region Laterality Modality Breast Bilateral Mammography 11/28/2023 8:16 AM PHOTO EQUIPMENT TECHNICIAN Impressions 11/28/2023 8:16 AM PHOTO EQUIPMENT TECHNICIAN There is no mammographic evidence of malignancy. A 1 year screening mammogram is recommended. BI-RADS: 1 - Negative. The patient has been or will be contacted. The patient will be entered into a reminder system with a target due date of 1 year for her next mammogram. Electronically signed by: Sakina Mattson M.D. Narrative 11/28/2023 8:16 AM PHOTO EQUIPMENT TECHNICIAN EXAMINATION: SCREENING MAMMOGRAM BILATERAL W REMY ORDERING [...] Most Recently Relevant to Health Maintenance Insurance [employer] ACCESS CHOICE [facility] ACCESS CHOICE Care Teams Cloth Dye Range Operator Relationship Specialty Start Date End Date Chary Ferris PA [address] [place] [address] PCP - General Automobile Drivers 11/16/18 Jose Juan Healy PT Physical Therapist Physical Therapy 07/30/24
--- OUTSIDE RECORDS SUMMARY | 2024-12-25 13:43 | XMS_ITS | Encounter Summary ---
Author Organization [facility] Address [address] [place] [address] Phone Care Team Providers Care Baseball Sewer Hand Name Role Phone Cheo David DO Unavailable [phone] Susanna Hickman PIER HAND HELPER, YARD SPOTTER Unavailable Angela Stafford PIER HAND HELPER, YARD SPOTTER Unavailable Gracy Griffith MD Unavailable [phone] Chary Ferris Primary Care Provider + Cameron Camacho MD Unavailable Sharon Tai MD Unavailable [phone] Gail Morales PIER HAND HELPER, YARD SPOTTER Unavailable Encounter Details Date Type Department Care Team (Late st Contact Info) Description 11/18/2022 Transcribe [facility] Ad[facility] 1 [facility] [place] [address] Magda Clarke MD [address] [address] Social History Tobacco Use Types Packs/Day Years [...] Master's degree (e.g., MA, MS, Shay, MEd, CASINO RUNNER, SYED) 11/29/2020 Sexually Active Control Partners Comments Yes Comments No Sex and Gender Information Value Date Recorded Sex Assigned at Not on file Legal Sex Female 10:48 PM CDT Gender Identity Not on file Sexual Orientation Not on file Occupation Industry Job Start Date Job End Date [employer] Not on file Not on file Not on file COVID-19 Exposure Response Date Recorded In the last 10 days, have yo u been in contact with someone who was confirmed or suspected to have Coronavirus/COVID-19? No / Unsure 11/18/2022 7:37 AM DIESEL SERVICE APPRENTICE documented as of this encounter Plan of Treatment Upcoming Encounters Date Type Department Care Team (Late st Contact Info) Description 03/16/2025 11:30 AM CDT Office Visit [facility] - Endocrinology - [place] [address] [place] [address] Cameron Camacho MD [address] [address] 04/05/2025 2:00 PM CDT Office Visit [facility] - Gastroenterology - [place] [address] [place] [address] Gail Morales APRN, YARD SPOTTER [address] [place] [address] 05/26/2025 11:15 AM CDT Office Visit [facility] Medical [facility] - Family Medicine - [place] [address] [place] [address] Chary Ferris PAC [address] [place] [address] documented as of this encounter Visit Diagnoses Not on filedocumented in this encounter Additional Health Concerns Assessment Noted Time PHQ-9 Depression Total Score: 0 02/16/20 21 2:00 PM CDT documented as of this encounter Care Teams Baseball Sewer Hand Relationship Specialty Start Date End Date Barrington Annette, PAC [address] [place] [address] PCP - General Physician Regional Trainer 11/17/17 Cheo David DO Gastroenterology 05/09/16 Susanna Hickman APRN, YARD SPOTTER Nurse Practitioner Advanced Practice Nurse 05/09/16 Angela Stafford APRN, YARD SPOTTER Nurse Practitioner Advanced Practice Nurse 05/09/16 Gracy Griffith MD [address] [facility] [place] [address] Family Medicine 04/03/17 Cameron Camacho MD [address] [address] Consulting Physician Endocrinology 12/15/23 Sharon Tai MD [address] [place] [address] Consulting Physician Gastroenterology 12/05/22 Gail Morales APRN, YARD SPOTTER [address] [place] [address] Nurse Practitioner Advanced Practice Nurse 10/06/24 documented as of this encounter
[2024-12-25 13:48] VITALS: BP 103/73; PULSE 91; RESP 20; TEMP 36.6; O2SAT 100
[2024-12-25 14:04] LABS: EDUAAPPEAR Cloudy; EDUABILI Negative (Negative); EDUABLOOD 3+ (Negative); EDUACOLOR1 Yellow; EDUAGLUCOSE Negative (Negative); EDUAKETONE Negative (Negative); EDUALEUKO 3+ (Negative); EDUANITRATE Positive (Negative); EDUAPH 6.5; EDUAPROTEIN 3+ (Negative); EDUASPGRAVITY 1.025; EDUAUROBILI 0.2
--- NOTE | 2024-12-25 14:35 | ED_ITS ---
HPI - General Adult General Chief complaint: Urogenital-Female Stated complaint: uti Source: patient Mode of arrival: ambulatory Limitations: no limitations History of Present Illness HPI narrative: Pt presents for evaluation of urinary symptoms for the past four days. Symptoms include dysuria, urinary frequency, urgency, hesitancy and now has developed hematuria. No fever, chills, nausea, vomiting, abdominal pain or low back pain. She has a history of UTI's and this feels similar. She did take ibuprofen for her symptoms which seemed to reduce her pain level. She was on vacation when her symptoms started which made it challenging for her to be evaluated for her symptoms. She has used pyridium in the past without difficulty. Related Data Home Medications ?Medication ?Instructions ?Recorded ?Confirmed ?Last Taken ?Type cyclobenzaprine 10 mg tablet 10 mg PO HS 12/30/20 07/06/23 Unknown History dexlansoprazole 30 mg 30 mg PO DAILY 12/30/20 07/06/23 Unknown History capsule,biphase delayed release (Dexilant) duloxetine 60 mg capsule,delayed 60 mg PO DAILY 12/30/20 07/06/23 Unknown History release (Cymbalta) famotidine 20 mg tablet (Pepcid) 20 mg PO BID 12/30/20 07/06/23 Unknown History pregabalin 150 mg capsule (Lyrica) 150 mg PO BID 12/30/20 07/06/23 Unknown History atenolol 25 mg tablet mg 12/25/24 Unknown History cevimeline 30 mg capsule 12/25/24 Unknown History Allergies Allergy/AdvReac Type Severity Reaction Status Date / Time acetaminophen Allergy Unknown Unknown Verified 12/25/24 13:53 codeine AdvReac Unknown nausea Verified 12/25/24 13:53 tramadol AdvReac Unknown severely Verified 12/25/24 13:53 interupted sleep Voltran Allergy Unknown Unknown Uncoded 12/25/24 13:53 Review of Systems Review of Systems: CONSTITUTIONAL: Denies fever, chills, or sweats. EYES: Denies visual changes, redness, or discharge. ENT: Denies rhinorrhea, congestion, sore throat, or otalgia. CARDIOVASCULAR: Denies chest pain, palpitations, or edema. RESPIRATORY: Denies cough or dyspnea. GASTROINTESTINAL: Denies abdominal pain, nausea, vomiting, or diarrhea. GENITOURINARY: Reports dysuria, urinary frequency, urgency, hesitancy and hematuria SKIN: Denies rash or itching. MUSCULOSKELETAL: Denies back pain, joint pain, or myalgia. NEUROLOGIC: Denies headache, numbness, dizziness, or weakness. PSYCHIATRIC: Denies anxiety or depression. [facility] Past Medical History Medical History Tricuspid regurgitation Connective tissue disease Fibromyalgia Surgical History Surgical History No pertinent past surgical history Family History Family History Mother Family history non-contributory Social History Social History Smoking status: Never smoker Substance use: never Gender identity (if verbalized by the patient): Female Spiritual care concerns: No Exam Narrative: GENERAL: Well-appearing, well-nourished, and in no acute distress. HEAD: Normocephalic, atraumatic. EYES: PERRLA and EOMI. ENT: Nares clear, no rhinorrhea or epistaxis. Mucous membranes moist. Oropharynx without tonsillar hypertrophy exudate or other lesions. Bilateral TMs pearly summers nonbulging NECK: Supple. No adenopathy or masses. No carotid bruits or JVD CHEST: Clear to auscultation. No respiratory distress. No wheezes rales or rhonchi HEART: Regular rate and rhythm. No murmur heard. Normal peripheral pulses. ABDOMEN: Soft, nontender, nondistended, normal active bowel sounds. EXTREMITIES: Normal range of motion. No edema. BACK: No CVA tenderness SKIN: Warm, dry, no rash. NEURO: No focal deficits. Alert and oriented x3. PSYCH: Normal mood and affect. Course Course Emergency Course: This is a 59 year old female who presents for evaluation of urinary symptoms. Urine nitrite positive. Will dc with bactrim. Send urine for culture. She has tolerated pyridium in the past despite tylenol allergy(which is more of an intolerance). Increase hydration. OTC agents for symptom management. Follow up with primary provider. Go to the ER for worsening symptoms. Pt in agreement with plan of care. Level of Care: Express Care Visit Vital Signs Vital signs: Vital Signs Temperature 36.6 C 12/25/24 13:48 Pulse Rate 91 12/25/24 13:48 Respiratory Rate 20 12/25/24 13:48 Blood Pressure 103/73 12/25/24 13:48 Pulse Oximetry 100 12/25/24 13:48 Oxygen Delivery Room Air 12/25/24 13:48 Temperature 36.6 C 12/25/24 13:48 Pulse Rate 91 12/25/24 13:48 Respiratory Rate 20 12/25/24 13:48 Blood Pressure 103/73 12/25/24 13:48 Pulse Oximetry 100 12/25/24 13:48 Oxygen Delivery Room Air 12/25/24 13:48 Medical Decision Making Vital Signs Vital Signs: Vital Signs Temperature 36.6 C 12/25/24 13:48 Pulse Rate 91 12/25/24 13:48 Respiratory Rate 20 12/25/24 13:48 Blood Pressure 103/73 12/25/24 13:48 Pulse Oximetry 100 12/25/24 13:48 Oxygen Delivery Room Air 12/25/24 13:48 Temperature 36.6 C 12/25/24 13:48 Pulse Rate 91 12/25/24 13:48 Respiratory Rate 12/25/24 13:48 Blood Pressure 103/73 12/25/24 13:48 Pulse Oximetry 100 12/25/24 13:48 Oxygen Delivery Room Air 12/25/24 13:48 Lab Data Labs: Lab Results 12/25/24 Range/Units 14:01 POC Urine Color Yellow POC Urine Clarity Cloudy POC Urine pH 6.5 POC Ur Specif [place] 1.025 POC Urine Protein 3+ (Negative) POC Ur Glucose (UA) Negative (Negative) POC Urine Ketones Negative (Negative) POC Urine Blood 3+ (Negative) POC Urine Nitrite Positive (Negative) POC Urine Bilirubin Negative (Negative) POC Urine Urobilinogen 0.2 POC U Leukocyte Esteras 3+ (Negative) Discharge Plan Discharge Clinical Impression: UTI (urinary tract infection) Patient Disposition: Home, Self-Care Condition: Stable Instructions: Antibiotic Form, Urinary Tract Infection in Women (DC) Patient Language: Hebrew Prescriptions: New sulfamethoxazole-trimethoprim [Bactrim DS] 800-160 mg tablet 1 tablet PO Q12H Qty: 14 0RF phenazopyridine [Pyridium] 200 mg tablet 200 mg PO TID Qty: 6 0RF No Action atenolol 25 mg tablet cevimeline 30 mg capsule cyclobenzaprine [Flexeril] 10 mg Tablet 10 mg PO HS famotidine [Pepcid] 20 mg Tablet 20 mg PO BID duloxetine [Cymbalta] 60 mg Capsule,Delayed Release(Dr/Ec) 60 mg PO DAILY pregabalin [Lyrica] 150 mg Capsule 150 mg PO BID dexlansoprazole [Dexilant] 30 mg Capsule,Biphase Delayed Releas 30 mg PO DAILY Follow-up/Referrals: Barrington,CARLINE Cerda [Primary Care Provider] - Time of Disposition: 14:34
== END 2024-12-25 14:38 | disposition home or self-care (01) ==
PROVIDERS: Emergency Provider Nurse Practitioner; PCP Physician Assistant
DX: N39.0 Urinary tract infection, site not specified (principal); B96.20 Unspecified Escherichia coli [E. coli] as the cause of diseases classified elsewhere; I07.1 Rheumatic tricuspid insufficiency; M79.7 Fibromyalgia
CPT/HCPCS: 81003; 87086; 87186; 99213; G0463